=== PATIENT | female | born 1935 | race Caucasian/White ===

== ENCOUNTER 2016-09-13 13:12 | Emergency (ER) | payer OTHER ==
[2016-09-13 13:18] VITALS: TEMP 98.1; BMI 29.2
--- NOTE | 2016-09-13 13:22 | PDOC ---
History of Present Illness - General Chief Complaint: Weakness Stated Complaint: WEAKNESS Time Seen by Provider: 09/13/16 13:21 - History of Present Illness Initial Comments: 09/13/16 15:48 Complaint: Cough and shortness of breath History of present illness: Patient with a cold and a cough for several days. Breathing worse today with wheezing. Generalized weakness. No fever/chills or chest pain. Review of systems: As noted above, no fever/chills, headache, sore throat, sputum, chest pain, abdominal pain, nausea, vomiting, diarrhea, diaphoresis, urinary tract symptoms, vaginal bleeding or discharge, visual or focal neurologic symptoms, unsteadiness of gait Past medical history: Atrial fibrillation, fiu-yfjvoev-oegpkzzga diabetes, elevated cholesterol, GERD, low potassium, high blood pressure, CHF, hypothyroidism Medications: Synthroid, metformin, Coreg, Altace, potassium, Protonix, Eliquis ALLERGIES: None Social/family history reviewed and noncontributory Physical exam: Alert oriented tearful and cooperative mild respiratory distress with tachypnea and dyspnea Afebrile, showing 70 9/79, heart rate 60 and regular, respiratory rate 20 and mildly labored with audible wheezing, and O2 saturation of 95% on room air HEENT shows only mildly dry mucous membranes Neck supple without bruit mass or nodes Bilateral wheezing is present in the chest, moderate severe, predominantly end expiratory, bilaterally symmetric CV S1 and S2 distant, regular 60 per minute, no murmurs rubs or gallops, no JVD or edema, pulses full Abdomen benign Neurological intact Extremities no CCE Skin clear, no rash, adequate turgor but mucous membranes somewhat dry Impression: Bronchitis, rule out pneumonia, rule out exacerbation of CHF. Plan: Chest x-ray, EKG, labs, nebulizer treatments, antibiotics and expectorant. Further evaluation and treatment depending on lab results and response to therapy. Past History - Past Medical History Allergies/Adverse Reactions: Allergies Allergy/AdvReac Type Severity Reaction Status Date / Time No Known Allergies Allergy Verified 09/13/16 13:13 Home Medications: Ambulatory Orders Apixaban [Eliquis -] 5 mg PO BID tablet 10/25/14 Atorvastatin Ca [Lipitor] 20 mg PO HS tablet 10/25/14 Carvedilol [Coreg -] 25 mg PO BID tablet 10/25/14 Furosemide [Lasix -] 80 mg PO BID@0600,1400 tablet 06/08/15 Levothyroxine [Synthroid -] 25 mcg PO DAILY@0700 tablet 10/25/14 Potassium Chloride [K-Dur -] 20 meq PO DAILY tablet.er 10/25/14 Ramipril [Altace] 5 mg PO DAILY capsule 10/25/14 Esomeprazole Magnesium [Nexium 24Hr] 20 mg PO DAILY 09/13/16 Moxifloxacin HCl [Avelox] 400 mg PO DAILY #7 tablet 09/13/16 Anemia: No Asthma: No Cancer: No Cardiac Disorders: Yes CVA: Yes COPD: No CHF: Yes Diabetes: Yes GI Disorders: No Disorders: No HTN: Yes Hypercholesterolemia: Yes Liver Disease: No Seizures: Yes (HYPO) Thyroid Disease: Yes (HYPOTHYROIDISM) - Surgical History Abdominal Surgery: No Appendectomy: No Cardiac Surgery: No Cholecystectomy: Yes Lung Surgery: No Neurologic Surgery: No Orthopedic Surgery: No - Psycho/Social/Smoking Cessation Hx Anxiety: No Suicidal Ideation: No Smoking History: Never smoked Have you smoked in the past 12 months: No Hx Alcohol Use: No Drug/Substance Use Hx: No Substance Use Type: None Hx Substance Use Treatment: No *Physical Exam - Vital Signs Last Vital Signs Temp Pulse Resp BP Pulse Ox 98.1 F 58 L 17 179/79 95 09/13/16 13:12 09/13/16 13:12 09/13/16 13:12 09/13/16 13:12 09/13/16 13:12 ED Treatment Course - LABORATORY CBC & Chemistry Diagram: 09/13/16 13:33 09/13/16 13:25 Medical Decision Making - Medical Decision Making 09/13/16 15:40 EKG shows sinus bradycardia 59/m. Normal axes and intervals. No ST-T wave changes. Chest x-ray shows cardiomegaly, tortuous aorta, but lung masterson clear, no consolidation, infiltrates, congestion, or effusions Lab work shows the urine of 26, creatinine of 1.0, otherwise CBC, chemistries without significant abnormalities The patient responded well to nebulizer treatments. Wheezing resolved. Shortness of breath much improved. Treated with small amount of IV fluids for dehydration, not wanting to precipitate congestive heart failure. Patient much improved, fully ambulatory, in no distress respiratory or otherwise upon discharge to follow-up with her primary physician as directed. 09/13/16 16:30 *DC/Admit/Observation/Transfer Diagnosis at time of Disposition: Bronchitis - Discharge Dispostion Disposition: HOME Condition at time of disposition: Improved Admit: No - Prescriptions Prescriptions: Moxifloxacin HCl [Avelox] 400 mg PO DAILY #7 tablet - Referrals Referrals: Alexandre Stern MD [Primary Care Provider] - 2 Days - Patient Instructions Printed Discharge Instructions: DI for Acute Bronchitis
[2016-09-13] MEDS ORDERED: ALBUTEROL SO4 2.5/IPRATROPIUM 0.5 INH SOL 3 ML VIAL.NEB. NEB ONE ×4 (13:44→15:19)
[2016-09-13 14:01] LABS: PH,URINE 5.5 (4.5-8); URINE APPEARANCE Clear; URINE BILIRUBIN Negative (NEGATIVE); URINE BLOOD Negative (NEGATIVE); URINE GLUCOSE (UA) Negative (NEGATIVE); URINE KETONE Negative (NEGATIVE); URINE NITRITE Negative (NEGATIVE); URINE PROTEIN Negative (NEGATIVE); URINE UROBILINOGEN 1.0 E.U/dl (0.2-1.0)
[2016-09-13 14:06] LABS: URINE COLOR YELLOW; URINE LEUK ESTERASE 1+ (NEGATIVE); URINE RBC 0-3 /hpf (0-3)
[2016-09-13 14:07] LABS: URINE BACTERIA MODERATE /hpf (NEGATIVE)
[2016-09-13 14:08] LABS: BASOPHIL 0.2 % (0-2.0); EOSINOPHIL 0.5 % (0-4.5); MCH 29.5 pg (25.7-33.7); MCHC 33.7 g/dl (32.0-36.0); MEAN CELL VOLUME 87.6 fl (80-96); MEAN PLT VOLUME 8.6 fl (7.5-11.1); NEUTROPHILS 66.1 % (42.8-82.8); PLATELET COUNT 152 K/MM3 (134-434); RDW 12.9 % (11.6-15.6); WHITE BLOOD COUNT 7.4 K/mm3 (4.0-10.8)
[2016-09-13 14:08] LABS: ALBUMIN 3.7 g/dl (3.5-5.0); ALK PHOS 87 U/L (32-92); ANION GAP 11 (8-16); CALCIUM 8.6 mg/dl (8.4-10.2); CO2 26 mmol/L (22-28); GLUCOSE,RANDOM 161 mg/dl (74-106); SGOT/AST 31 U/L (10-42); SGPT/ALT 20 U/L (10-40); TOT PROT 6.8 g/dl (6.4-8.3)
[2016-09-13 15:20] LABS: CK MB 10.2 ng/ml (0.3-4.0); TROPONIN I (DFP) 0.03 ng/ml (0.03-0.50)
[2016-09-13] MEDS ORDERED: SODIUM CHLORIDE 250 ML IV STA (15:37)
[2016-09-13 16:12] VITALS: BP 182/88; PULSE 71
--- NOTE | 2016-09-14 16:54 | EKG ---
Test Reason : Blood Pressure : / mmHG Vent. Rate : 059 BPM Atrial Rate : 059 BPM P-R Int : 158 ms QRS Dur : 082 ms QT Int : 484 ms P-R-T Axes : 078 052 060 degrees QTc Int : 479 ms SINUS BRADYCARDIA LOW VOLTAGE QRS NO PREVIOUS ECGS AVAILABLE Confirmed by MD PINEDO MARJORY ([id number]) on 09/14/2016 4:54:12 PM Referred By: JANES OLIVEROS Confirmed By:RHIANNON PINEDO MD
== END 2016-09-13 16:20 | disposition home or self-care (01) ==
LOC: FER 13:12
PROC: 3E0337Z Introduction of Electrolytic and Water Balance Substance into Peripheral Vein, Percutaneous Approach (ICD-10-PCS; principal; 2016-09-13)
DX: J40 Bronchitis, not specified as acute or chronic (principal); I10 Essential (primary) hypertension; E03.9 Hypothyroidism, unspecified; E78.00 Pure hypercholesterolemia, unspecified; E11.9 Type 2 diabetes mellitus without complications; Z86.73 Personal history of transient ischemic attack (TIA), and cerebral infarction without residual deficits
CPT/HCPCS: 36415; 71010-TC; 80053; 81003; 81015; 82550; 82553; 84484; 85025; 93005; 99284-25

== ENCOUNTER 2019-03-12 18:24 | Inpatient (IN) | payer OTHER ==
--- NOTE | 2019-03-12 18:31 | PDOC ---
Rapid Medical Evaluation Time Seen by Provider: 03/12/19 18:26 Medical Evaluation: Allergies Allergy/AdvReac Type Severity Reaction Status Date / Time No Known Allergies Allergy Verified 09/13/16 13:13 03/12/19 18:28 CC: fever and weakness PE: Bibasilar crackles. RLE edema. Spo2-65%RA Orders: cardiac w/u Patient will proceed to ED for further evaluation. Discharge Disposition - Diagnosis Hypoxia - Referrals - Patient Instructions - Post Discharge Activity
--- NOTE | 2019-03-12 19:10 | PDOC ---
History of Present Illness - General Chief Complaint: Respiratory Stated Complaint: LOW OXYGEN LEVEL Time Seen by Provider: 03/12/19 18:26 - History of Present Illness Initial Comments: 03/12/19 19:20 83f with pmh of HTN, HLD, COPd, CHF, a-fib, dm2, hypothyroidism and old cerebellar stroke, presents to the ED for hypoxia and ams with hallucinations today. Reportedly she had low grade fever today and desaturated to 65% today. She is not on O2 at home. Hallucinated today, saw some people who werent;t there. Has been progressively sicker throughout the week. Legs were very swollen earlier this week now half as swollen. Denies chest pain abdominal pain or dysuria. PCP at the bedside with daughter. According to PCP her o2 sat at baseline is 88%. Past History - Past Medical History Allergies/Adverse Reactions: Allergies Allergy/AdvReac Type Severity Reaction Status Date / Time No Known Allergies Allergy Verified 03/12/19 18:29 Home Medications: Ambulatory Orders Alprazolam [Xanax] 0.25 mg PO BID 03/12/19 Amiodarone HCl 200 mg PO DAILY 03/12/19 Apixaban [Eliquis] 2.5 mg PO BID 03/12/19 Atorvastatin Ca [Lipitor] 10 mg PO HS 03/12/19 Furosemide [Lasix] 80 mg PO BID 03/12/19 Hydralazine HCl 50 mg PO BID 03/12/19 Insulin (Novolog 70/30) [Novolog Mix 70/30 Vial] 20 units SQ DAILY 03/12/19 Levothyroxine [Synthroid -] 25 mcg PO DAILY 03/12/19 Lisinopril [Zestril] 40 mg PO DAILY 03/12/19 Metoprolol Succinate 12.5 mg PO DAILY 03/12/19 Anemia: No Asthma: No Cancer: No Cardiac Disorders: Yes CVA: Yes COPD: No CHF: Yes Diabetes: Yes GI Disorders: No Disorders: No HTN: Yes Hypercholesterolemia: Yes Liver Disease: No Seizures: Yes (HYPO) Thyroid Disease: Yes (HYPOTHYROIDISM) - Surgical History Abdominal Surgery: No Appendectomy: No Cardiac Surgery: No Cholecystectomy: Yes Lung Surgery: No Neurologic Surgery: No Orthopedic Surgery: No - Immunization History Immunization Up to Date: Yes - Psycho Social/Smoking Cessation Hx Smoking History: Never smoked Have you smoked in the past 12 months: No Hx Alcohol Use: No Drug/Substance Use Hx: No Substance Use Type: None Hx Substance Use Treatment: No Review of Systems - Review of Systems Able to Perform ROS?: Yes Is the patient limited Amharic proficient: No Constitutional: Yes: Chills, Fever HEENTM: No: Symptoms Reported Respiratory: Yes: See HPI Cardiac (ROS): No: Symptoms Reported ABD/GI: No: Symptoms Reported : No: Symptoms Reported Musculoskeletal: No: Symptoms Reported Integumentary: No: Symptoms Reported Neurological: Yes: See HPI All Other Systems: Reviewed and Negative *Physical Exam - Vital Signs Last Vital Signs Temp Pulse Resp BP Pulse Ox 98.5 F 69 22 H 155/72 65 L 03/12/19 18:30 03/12/19 18:30 03/12/19 18:30 03/12/19 18:30 03/12/19 18:30 - Physical Exam General Appearance: Yes: Appropriately Dressed, Mild Distress, Thin HEENT: positive: EOMI, MACKENZIE, Normal ENT Inspection Respiratory/Chest: positive: Decreased Breath Sounds, Crackles (left lower lung) . negative: Chest Tender Cardiovascular: positive: Regular Rhythm, Regular Rate, S1, S2 Gastrointestinal/Abdominal: positive: Normal Bowel Sounds, Flat, Soft. negative : Tender Musculoskeletal: positive: Normal Inspection. negative: CVA Tenderness Extremity: positive: Pedal Edema Integumentary: positive: Dry, Warm, Swelling ED Treatment Course - LABORATORY CBC & Chemistry Diagram: 03/12/19 19:00 03/12/19 19:00 Medical Decision Making - Medical Decision Making 03/12/19 21:38 83f with pmh of HTN, HLD, COPd, CHF, a-fib, dm2, hypothyroidism and old cerebellar stroke, presents to the ED for hypoxia and ams with hallucinations today. Septic workup ordered. Patient has upper lobe right sided pneumonia on xray. Ct chest pending. Labs positive for elevated BNP and slightly elevated troponins. PCp at bedside will order admission lab. Patient admitted to telemetry. Admission is indicated as the patient has hypoxemia, altered mental status that is severe. 03/12/19 21:50 Ct chest 1. Mild mediastinal lymphadenopathy. 2. Cardiomegaly and small pericardial effusion. 3. Extensive consolidation involving the right upper lobe with lesser infiltrates involving the right lower and left upper lobes. 4. Moderate right pleural effusion and smaller left pleural effusion. Please see above discussion. Discharge - Discharge Information Problems reviewed: Yes Clinical Impression/Diagnosis: Hypoxia, Pneumonia - Admission Yes - Follow up/Referral - Patient Discharge Instructions - Post Discharge Activity
[2019-03-12 19:23] LABS: VENOUS PC02 40.7 mmHg (38-52)
[2019-03-12 19:24] LABS: VENOUS PO2 < 49 mmHg (28-48)
[2019-03-12 19:26] LABS: BASO % 0.6 % (0-2.0); EOS % 0.9 % (0-4.5); HEMOGLOBIN 11.7 GM/dL (10.7-15.3); LYMPH % 14.4 % (8-40); MCH 30.6 pg (25.7-33.7); MCHC 33.4 g/dl (32.0-36.0); MEAN CELL VOLUME 91.6 fl (80-96); MEAN PLT VOLUME 8.9 fl (7.5-11.1); MONO % 12.1 % (3.8-10.2); PLATELET COUNT 231 K/MM3 (134-434); RBC 3.82 M/mm3 (3.60-5.2); RDW 14.9 % (11.6-15.6); WHITE BLOOD COUNT 10.6 K/mm3 (4.0-10.0)
[2019-03-12 19:49] LABS: INR 1.88 (0.83-1.09); PROTHROMBIN TIME (PATIENT) 22.3 SEC (9.7-13.0)
[2019-03-12 19:52] LABS: ACTIVATED PTT 60.5 SECONDS (25.2-36.5)
[2019-03-12 20:05] LABS: ALBUMIN 3.1 g/dl (3.4-5.0); BILIRUBIN,TOTAL 1.2 mg/dL (0.2-1); BLOOD UREA NITROGEN 40.2 mg/dL (7-18); CALCIUM 8.5 mg/dL (8.5-10.1); CREATININE 1.5 mg/dL (0.55-1.3); POTASSIUM 3.6 mmol/L (3.5-5.1); TOT PROT 6.5 g/dl (6.4-8.2)
[2019-03-12] MEDS ORDERED: AZITHROMYCIN 250 MG TABLET PO ONE (20:09)
[2019-03-12] MEDS ORDERED: CEFTRIAXONE 1,000 MG in DEXTROSE 5%-WATER - 50 ML IVPB ONE (20:10)
[2019-03-12 20:15] LABS: BILIRUBIN,TOTAL 1.2 mg/dL (0.2-1); CALCIUM 8.2 mg/dL (8.5-10.1); CREATININE 1.5 mg/dL (0.55-1.3); MAGNESIUM 2.5 mg/dL (1.8-2.4); N-TERMINAL BNP 9139.1 pg/ml (5-450); POTASSIUM 3.6 mmol/L (3.5-5.1); TOT PROT 6.5 g/dl (6.4-8.2)
--- NOTE | 2019-03-12 20:25 | PDOC ---
Attending Attestation - Resident Resident Name: MadisonAshkan - ED Attending Attestation I have performed the following: I have examined & evaluated the patient, The case was reviewed & discussed with the resident, I agree w/resident's findings & plan, Exceptions are as noted - HPI HPI: 03/12/19 20:18 83F pmh HTN, HLD, COPD, CHF here with several days of cough, subjective fevers, AMS and new hypoxia. Per daughter at bedside patient has been having cough for the past week with progressively labile mental status. Daughter measured oxygen saturation after the patient started making bizarre statements and found it to be fluctuating between 65% and 80% triggering her to come to the ED. Patient was seen 2 days ago by her lisw who did not note any acute issues. Per daughter, patients chronic bilateral lower extremity edema is significantly improved over the past 2 weeks after a medication change. - Physicial Exam PE: 03/12/19 20:25 Agree with exam as documented by resident - Medical Decision Making 03/12/19 20:25 Clinical presentation is worrisome for respiratory infection Consider other infectious source like uti Consider electrolyte derangement Less likely intracranial abnormality, PE, CHF F/u labs, ua, ucx, cxr, consider CT Dispo per clinical course CXR consistent with infection/consolidation Start abx Pt moderate to high risk, will admit for care
[2019-03-12] MEDS ORDERED: CEFTRIAXONE 1 GM/50 ML BAG ONE (20:30)
[2019-03-12] MEDS ORDERED: AZITHROMYCIN 250 MG TABLET ONE (20:31)
--- NOTE | 2019-03-12 20:37 | HP ---
Admitting History and Physical - Admission Chief Complaint: Acute exacerbation of shortness of breath, easy fatigability, generalized muscle weakness, tachypnea, and visual hallucinations. History of Present Illness: This 83 yr old w/f with history of atrial fibrillation, HCVD with CHF, type 2 diabetes, hyperlipidemia, hypothyroidism, and old cerebellar stroke admitted via ER with acute right upper lobe pneumonia. 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, Vertigo (secondary to chronic cerebellar stroke) Cardiovascular: Yes: AFIB, CHF, HTN, Hyperlipdemia Pulmonary: Yes: Pneumonia Gastrointestinal: Yes: GERD Hepatobiliary: Yes: Cholelithiasis, Cholecystitis Psych: Yes: Anxiety, Psychosis Endocrine: Yes: Diabetes Mellitus, Hypothyroidism - Past Surgical History Past Surgical History: Yes: Cholecystectomy, Hysterectomy, Oopherectomy - Smoking History Smoking history: Never smoked Have you smoked in the past 12 months: No - Alcohol/Substance Use Hx Alcohol Use: No - Social History Usual Living Arrangement: Yes: With Child Do you think of yourself as: Straight/Heterosexual ADL: Family Assistance Home Medications - Allergies Allergies/Adverse Reactions: Allergies Allergy/AdvReac Type Severity Reaction Status Date / Time No Known Allergies Allergy Verified 03/12/19 18:29 - Home Medications Home Medications: Ambulatory Orders Alprazolam [Xanax] 0.25 mg PO BID 03/12/19 Amiodarone HCl 200 mg PO DAILY 03/12/19 Apixaban [Eliquis] 2.5 mg PO BID 03/12/19 Atorvastatin Ca [Lipitor] 10 mg PO HS 03/12/19 Furosemide [Lasix] 80 mg PO BID 03/12/19 Hydralazine HCl 50 mg PO BID 03/12/19 Insulin (Novolog 70/30) [Novolog Mix 70/30 Vial] 20 units SQ DAILY 03/12/19 Levothyroxine [Synthroid -] 25 mcg PO DAILY 03/12/19 Lisinopril [Zestril] 40 mg PO DAILY 03/12/19 Metoprolol Succinate 12.5 mg PO DAILY 03/12/19 Family Medical History Family Hx Cardiac Disorders: Mother Family Hx Nuerologic Problems: Mother Review of Systems - Review of Systems Constitutional: reports: Fever, Malaise, Weakness Eyes: reports: No Symptoms HENT: reports: No Symptoms Neck: reports: No Symptoms Cardiovascular: reports: No Symptoms Respiratory: reports: Cough, Hemoptysis, SOB Gastrointestinal: reports: Constipation Genitourinary: reports: No Symptoms Breasts: reports: No Symptoms Reported Musculoskeletal: reports: Muscle Weakness Integumentary: reports: No Symptoms Neurological: reports: Confusion, Dizziness, Unsteady Gait, Weakness Endocrine: reports: No Symptoms Hematology/Lymphatic: reports: No Symptoms Psychiatric: reports: Anxiety, Hallucinations Physical Examination Vital Signs: Vital Signs Temperature 99.5 F 03/12/19 18:45 Pulse Rate 67 03/12/19 20:19 Respiratory Rate 24 H 03/12/19 20:19 Blood Pressure 174/76 H 03/12/19 20:19 O2 Sat by Pulse Oximetry (%) 92 L 03/12/19 20:19 Constitutional: Yes: Well Nourished, Anxious, Moderate Distress Eyes: Yes: Conjunctiva Clear, EOM Intact HENT: Yes: Atraumatic, Normocephalic Neck: Yes: Supple, Trachea Midline Cardiovascular: Yes: Regular Rate and Rhythm Respiratory: Yes: Regular, Accessory Muscle Use, Cough, Diminished, On Venti- Mask, SOB, Tachypnea Gastrointestinal: Yes: Normal Bowel Sounds, Soft ...Rectal Exam: Yes: Deferred Renal/: Yes: WNL Breast(s): Yes: WNL Musculoskeletal: Yes: Muscle Weakness Extremities: Yes: Cool Edema: Yes Edema: LLE: 3+, RLE: 3+ Peripheral Pulses: Left Radial: 3+, Right Radial: 3+, Left Doralis Pedis: 2+, Right Dorsalis Pedis: 2+, Left Femoral: 3+, Right Femoral: 3+ Integumentary: Yes: WNL Neurological: Yes: Confusion, Unsteady Gait, Weakness ...Motor Strength: LUE (generalized muscle weakness), LLE (generalized muscle weakness), RUE (generalized muscle weakness), RLE (generalized muscle weakness) Psychiatric: Yes: Alert, Oriented Labs: CBC, BMP 03/12/19 19:00 03/12/19 19:00 Imaging - Results EKG: Report Reviewed Problem List - Problems (1) Acute pneumonia Assessment/Plan: IV antibiotics, consultation to ID. Code(s): J18.9 - PNEUMONIA, UNSPECIFIED ORGANISM (2) Hypoxia Assessment/Plan: Oxygen via venti mask. Code(s): R09.02 - HYPOXEMIA Assessment/Plan Reason for admission and hospital stay: acute right upper lobe pneumonia, acute hypoxia, IV fluids, IV antibiotics, Consultation to ID, physical therapy, discussed clinical condition of the patient with her daughter Gracie.
[2019-03-12 20:47] LABS: PH,URINE 5.5 (5.0-8.0); URINE APPEARANCE CLEAR; URINE BILIRUBIN NEGATIVE (NEGATIVE); URINE COLOR YELLOW; URINE GLUCOSE (UA) NEGATIVE (NEGATIVE); URINE KETONE NEGATIVE (NEGATIVE); URINE LEUK ESTERASE NEGATIVE (NEGATIVE); URINE NITRITE NEGATIVE (NEGATIVE); URINE PROTEIN NEGATIVE (NEGATIVE)
[2019-03-12] MEDS ORDERED: ALPRAZolam 0.25 MG TABLET PO STA (20:56)
[2019-03-12] MEDS ORDERED: metoPROLOL SUCCINATE 25 MG TAB.SR.24H (FP) PO SCH (21:00)
[2019-03-12] MEDS: hydrALAZINE HCL 50 MG TABLET (FP) PO SCH (22:55)
[2019-03-12] MEDS: APIXABAN 2.5 MG TABLET PO SCH (22:55)
[2019-03-13 01:55] VITALS: BMI 32.5
[2019-03-13] MEDS ORDERED: LEVOTHYROXINE NA 25 MCG TABLET (FP) PO SCH (07:00)
[2019-03-13] MEDS: FUROSEMIDE 40 MG TABLET (FP) PO SCH ×2 (07:37→13:17)
[2019-03-13] MEDS: LEVOTHYROXINE NA 25 MCG TABLET (FP) PO SCH (07:37)
[2019-03-13] MEDS ORDERED: INSULIN (NOVOLOG MIX 70/30) 100 UNITS/ML MDV SQ SCH (08:00)
[2019-03-13] MEDS: AMIODARONE HCL 200 MG TABLET (FP) PO SCH (09:04)
[2019-03-13] MEDS: LISINOPRIL 20 MG TABLET (FP) PO SCH (09:04)
[2019-03-13] MEDS: APIXABAN 2.5 MG TABLET PO SCH ×2 (09:05→21:44)
[2019-03-13] MEDS: hydrALAZINE HCL 50 MG TABLET (FP) PO SCH ×2 (09:05→21:44)
[2019-03-13] MEDS: metoPROLOL SUCCINATE 25 MG TAB.SR.24H (FP) PO SCH (09:06)
[2019-03-13] MEDS ORDERED: FLU VACCINE QUAD 60 MCG/0.5 ML (MDV 19-20) IM ONE (10:00)
--- NOTE | 2019-03-13 10:40 | PN ---
Progress Note (short form) - Note Progress Note: ID CONSULT DICTATED MULTILOBAR PNEUMONIA R/O SEPSIS SECONDARY TO PNEUMONIA TOXIC METABOLIC ENCEPHALOPATHY ELEVATED LFTS AZOTEMIA AWAIT C/S EMPIRIC ZITHROMAX/ ZOSYN
[2019-03-13] MEDS ORDERED: PIPERACILLIN/TAZOBACTAM 3.375 GM VIAL IVPB ONE ×2 (11:08→17:13)
[2019-03-13] MEDS ORDERED: DEXTROSE 5%-WATER - 50 ML IVPB ONE ×2 (11:09→17:13)
[2019-03-13] MEDS: PIPERACILLIN/TAZOB 3.375 GM 3.375 GM in DEXTROSE 5%-WATER - 50 ML IVPB SCH ×2 (11:26→17:24)
--- NOTE | 2019-03-13 12:38 | PN ---
Progress Note, Physician Chief Complaint: Acute shortness of breath, easy fatigability, generalized muscle weakness, and unsteadiness on feet. Wishes to be assisted to restroom when needed. History of Present Illness: This 83 yr old w/f with history of atrial fibrillation, HCVD with CHF, hyperlipidemia, GERD, chronic cerebellar stroke, type 2 diabetes, cardiomegaly, and hypothyroidism admitted via ER with acute multi-lobar pneumonia, severe hypoxemia, sepsis, acute debillity, and hyponatremia. - Current Medication List Current Medications: Active Medications Amiodarone HCl (Cordarone -) 200 mg PO DAILY [facility] Last Admin: 03/13/19 09:04 Dose: 200 mg Apixaban (Eliquis -) 2.5 mg PO BID [facility] Last Admin: 03/13/19 09:05 Dose: 2.5 mg Atorvastatin Calcium (Lipitor -) 10 mg PO HS [facility] Furosemide (Lasix -) 80 mg PO BIDLASIX [facility] Last Admin: 03/13/19 07:37 Dose: 80 mg Hydralazine HCl (Apresoline -) 50 mg PO Q12H [facility] Last Admin: 03/13/19 09:05 Dose: 50 mg Azithromycin (Zithromax 500mg Ivpb (Pre-Docked)) 500 mg in 250 mls @ 250 mls/ hr IVPB DAILY [facility] Piperacillin Sod/Tazobactam (Sod 3.375 gm/ Dextrose) 50 mls @ 100 mls/hr IVPB Q8H-IV [facility]; Protocol Last Admin: 03/13/19 11:26 Dose: 100 mls/hr Insulin Aspart (Novolog Mix 70/30 Vial) 20 units SQ Q24H [facility] Last Admin: 03/13/19 11:25 Dose: 20 units Levothyroxine Sodium (Synthroid -) 25 mcg PO AM [facility] Last Admin: 03/13/19 07:37 Dose: 25 mcg Lisinopril (Prinivil) 40 mg PO DAILY [facility] Last Admin: 03/13/19 09:04 Dose: 40 mg Metoprolol Succinate (Toprol Xl -) 12.5 mg PO Q24H [facility] Last Admin: 03/13/19 09:06 Dose: 12.5 mg - Objective Vital Signs: Vital Signs Temperature 98.0 F 03/13/19 08:31 Pulse Rate 73 03/13/19 08:31 Respiratory Rate 18 03/13/19 08:31 Blood Pressure 151/82 03/13/19 08:31 O2 Sat by Pulse Oximetry (%) 93 L 03/12/19 23:00 Constitutional: Yes: Well Nourished, Moderate Distress Eyes: Yes: Conjunctiva Clear, EOM Intact, Other (left subconjunctival hemorrhage ) HENT: Yes: Atraumatic, Normocephalic, Epistaxis (traumatic) Neck: Yes: Supple, Trachea Midline Cardiovascular: Yes: Regular Rate and Rhythm Respiratory: Yes: Regular, Accessory Muscle Use, Diminished (right upper lobe), On Venti-Mask (50% oxygen), Rales, Rhonchi, SOB Gastrointestinal: Yes: Normal Bowel Sounds, Soft ...Rectal Exam: Yes: Deferred Genitourinary: Yes: WNL Breast(s): Yes: WNL Musculoskeletal: Yes: Muscle Weakness Extremities: Yes: Cool Edema: Yes Edema: LLE: 2+, RLE: 2+ Peripheral Pulses WNL: Yes Peripheral Pulses: Left Radial: 3+, Right Radial: 3+, Left Doralis Pedis: 2+, Right Dorsalis Pedis: 2+, Left Femoral: 3+, Right Femoral: 3+ Integumentary: Yes: WNL Neurological: Yes: Alert, Oriented, Unsteady Gait, Weakness ...Motor Strength: LUE (muscle weakness), LLE (muscle weakness), RUE (muscle weakness), RLE (muscle weakness) Psychiatric: Yes: Alert, Oriented Labs: CBC, BMP 03/12/19 19:00 03/12/19 19:00 INR, PTT INR 1.88 (0.83-1.09) H 03/12/19 19:00 - ....Imaging Chest X-ray: Report Reviewed Cat Scan: Report Reviewed Other: Report Reviewed (Lab data reviewed, ID consult read and appreciated.) Problem List - Problems (1) Pneumonia Assessment/Plan: IV Zosyn and Zithromax as per ID. Code(s): J18.9 - PNEUMONIA, UNSPECIFIED ORGANISM (2) Hypoxia Assessment/Plan: 50% oxygen via venti-mask. Code(s): R09.02 - HYPOXEMIA (3) Sepsis Assessment/Plan: IV Zosyn and Zithromax. Code(s): A41.9 - SEPSIS, UNSPECIFIED ORGANISM (4) Hyponatremia Assessment/Plan: mild hyponatremia - close observation. Code(s): E87.1 - HYPO-OSMOLALITY AND HYPONATREMIA Assessment/Plan Plan: Acute lobar pneumonia of the right upper lobe, right lower lobe, and left upper lobe; acute sepsis, acute hypoxia, acute hyponatremia, acute generalized muscle weakness, IV fluids, IV Zosyn and Zithromax, physical therapy, discussed clinical condition of the patient with her daughter Gracie.
[2019-03-13] MEDS: AZITHROMYCIN IVPB 500 MG/250 ML BAG IVPB SCH (13:16)
--- NOTE | 2019-03-13 13:29 | EKG ---
Test Reason : Blood Pressure : / mmHG Vent. Rate : 066 BPM Atrial Rate : 066 BPM P-R Int : 182 ms QRS Dur : 090 ms QT Int : 458 ms P-R-T Axes : 045 040 027 degrees QTc Int : 480 ms POOR DATA QUALITY, INTERPRETATION MAY BE ADVERSELY AFFECTED NORMAL SINUS RHYTHM Confirmed by PAUL CHAO MD ([id number]) on 03/13/2019 1:29:34 PM Referred By: Confirmed By:PAUL CHAO MD
--- NOTE | 2019-03-13 16:41 | CONS ---
DATE OF CONSULTATION: 03/13/2019 INFECTIOUS DISEASE CONSULTATION HISTORY OF PRESENT ILLNESS: The patient is an 83-year-old female who is evaluated for pneumonia. She is primarily Yi speaking. According to the notes, she has had a 1-week history of worsening cough and subjective fever as well as altered mentation and increased lower extremity swelling. She was noted to be hypoxemic. She presented to the hospital where chest x-ray showed a pulmonary congestion with right upper lobe consolidation. CAT scan subsequently showed multilobar infiltrates including right upper lobe, right lower lobe, and left upper lobe. She also had mild mediastinal lymphadenopathy, cardiomegaly and a bilateral pleural effusion, right greater than left. At the present time she is awake and alert. She is slightly short of breath, at rest on nasal cannula. She denies any chest pain. She has occasional cough, denies purulent sputum production or hemoptysis. No known ill contacts. The patient resides at home. She is a nonsmoker, nondrinker. No recent hospitalizations. PAST MEDICAL HISTORY: Positive for hypertension, hyperlipidemia, COPD, congestive heart failure, atrial fibrillation, diabetes mellitus, hypothyroidism, stroke. ALLERGIES: No known allergies. MEDICATION: Include Xanax, amiodarone, Eliquis, Lipitor, Zithromax, ceftriaxone, Lasix, hydralazine, metoprolol. SOCIAL HISTORY: As per HPI. Lives at home. No recent hospitalizations. Nonsmoker. Nondrinker. SYSTEMS REVIEW: Neurologic: Positive for confusion. No loss of consciousness, seizure activity, focal weakness. Cardiac: Negative for chest pain or palpitations. Respiratory: As per HPI. Gastrointestinal: Negative vomiting or diarrhea. Genitourinary: Negative for urinary tract infection. LABORATORY DATA: White count 7.6, hematocrit 35.0, platelet count 231, creatinine 1.5, total bilirubin 1.2, alkaline phosphatase 103, AST 126, ALT 318. Urinalysis negative. Cultures are pending. PHYSICAL EXAMINATION: General: On exam, she is awake and alert, she is slightly short of breath at rest on nasal canula. Vital signs: Temperature 98.0, blood pressure 151/82, pulse 73 regular, respirations 18 per minute. HEENT: Sclerae anicteric. Cardiovascular: Heart sounds S1, S2. Lungs: Diminished breath sounds bilaterally. No rhonchi, rales or wheezing. Abdomen: Obese. Soft, nontender. Extremities: 1+ edema. IMPRESSION: 1. Multilobar pneumonia. 2. Rule out sepsis secondary to pneumonia. 3. Toxic metabolic encephalopathy. 4. Elevated liver enzymes. 5. Azotemia. Await sepsis workup. Empiric antibiotic coverage with Zithromax and Zosyn pending sepsis workup. Further recommendations pending culture results. Will follow. Thank you for the kind referral. PAUL PERRY M.D. [id number]
[2019-03-13] MEDS ORDERED: ATORVASTATIN CA 10 MG TABLET (FP) PO SCH (22:00)
[2019-03-14] MEDS ORDERED: DEXTROSE 5%-WATER - 50 ML IVPB ONE ×2 (01:02→09:26)
[2019-03-14] MEDS ORDERED: PIPERACILLIN/TAZOBACTAM 3.375 GM VIAL IVPB ONE ×2 (01:02→09:25)
[2019-03-14] MEDS: PIPERACILLIN/TAZOB 3.375 GM 3.375 GM in DEXTROSE 5%-WATER - 50 ML IVPB SCH ×5 (01:10→20:17)
[2019-03-14] MEDS ORDERED: HALOPERIDOL LACTATE 5 MG/ML IM ONE (01:50)
[2019-03-14] MEDS ORDERED: HALOPERIDOL LACTATE 5 MG/ML ONE (01:51)
[2019-03-14] MEDS: LEVOTHYROXINE NA 25 MCG TABLET (FP) PO SCH (06:30)
[2019-03-14] MEDS: FUROSEMIDE 40 MG TABLET (FP) PO SCH ×2 (06:30→16:23)
[2019-03-14 06:35] LABS: BASO % 0.3 % (0-2.0); HEMOGLOBIN 11.6 GM/dL (10.7-15.3); LYMPH % 4.5 % (8-40); MCH 30.7 pg (25.7-33.7); MCHC 33.3 g/dl (32.0-36.0); MEAN CELL VOLUME 92.2 fl (80-96); MEAN PLT VOLUME 8.6 fl (7.5-11.1); MONO % 4.8 % (3.8-10.2); NEUT % 90.4 % (42.8-82.8); PLATELET COUNT 275 K/MM3 (134-434); RBC 3.79 M/mm3 (3.60-5.2); RDW 14.6 % (11.6-15.6); WHITE BLOOD COUNT 10.3 K/mm3 (4.0-10.0)
[2019-03-14 07:06] LABS: ALBUMIN 3.2 g/dl (3.4-5.0); BILIRUBIN,TOTAL 1.7 mg/dL (0.2-1); BLOOD UREA NITROGEN 26.9 mg/dL (7-18); CALCIUM 8.3 mg/dL (8.5-10.1); CREATININE 1.3 mg/dL (0.55-1.3); POTASSIUM 3.7 mmol/L (3.5-5.1); TOT PROT 6.6 g/dl (6.4-8.2)
[2019-03-14] MEDS ORDERED: ALPRAZolam 0.25 MG TABLET PO SCH (08:00)
[2019-03-14] MEDS ORDERED: INSULIN (NOVOLOG MIX 70/30) 100 UNITS/ML MDV SQ SCH (08:00)
--- NOTE | 2019-03-14 11:45 | PN ---
Progress Note, Physician Chief Complaint: Acute combative state, and acute delirium, since last night. Awake all night. Fell asleep at 7am. History of Present Illness: This 83 yr old w/f with history of atrial fibrillation, hyperlipidemia, HCVD with CHF, type 2 diabetes, GERD, and generalized anxiety disorder admitted via ER with acute multi-lobar pneumonia (right upper lobe, right lower lobe, and left upper lobe), severe hypoxemia, sepsis, and toxic metabolic encephalopathy. - Current Medication List Current Medications: Active Medications Alprazolam (Xanax -) 0.25 mg PO Q12H [facility] Amiodarone HCl (Cordarone -) 200 mg PO DAILY [facility] Last Admin: 03/13/19 09:04 Dose: 200 mg Apixaban (Eliquis -) 2.5 mg PO BID [facility] Last Admin: 03/13/19 21:44 Dose: 2.5 mg Atorvastatin Calcium (Lipitor -) 10 mg PO HS [facility] Last Admin: 03/13/19 21:44 Dose: 10 mg Furosemide (Lasix -) 80 mg PO BIDLASIX [facility] Last Admin: 03/14/19 06:30 Dose: 80 mg Hydralazine HCl (Apresoline -) 50 mg PO Q12H [facility] Last Admin: 03/13/19 21:44 Dose: 50 mg Azithromycin (Zithromax 500mg Ivpb (Pre-Docked)) 500 mg in 250 mls @ 250 mls/ hr IVPB DAILY [facility] Last Admin: 03/13/19 13:16 Dose: 250 mls/hr Piperacillin Sod/Tazobactam (Sod 3.375 gm/ Dextrose) 50 mls @ 100 mls/hr IVPB Q8H-IV [facility]; Protocol Last Admin: 03/14/19 02:55 Dose: 100 mls/hr Insulin Aspart (Novolog Mix 70/30 Vial) 22 units SQ Q24H [facility] Levothyroxine Sodium (Synthroid -) 25 mcg PO AM [facility] Last Admin: 03/14/19 06:30 Dose: 25 mcg Lisinopril (Prinivil) 40 mg PO DAILY [facility] Last Admin: 03/13/19 09:04 Dose: 40 mg Metoprolol Succinate (Toprol Xl -) 12.5 mg PO Q24H [facility] Last Admin: 03/13/19 09:06 Dose: 12.5 mg - Objective Vital Signs: Vital Signs Temperature 98.8 F 03/14/19 08:32 Pulse Rate 67 03/14/19 08:32 Respiratory Rate 16 03/14/19 08:32 Blood Pressure 124/58 L 03/14/19 08:32 O2 Sat by Pulse Oximetry (%) 92 L 03/13/19 21:00 Constitutional: Yes: Well Nourished, Moderate Distress, Other (lethargic) Eyes: Yes: Conjunctiva Clear (except for small left subconjunctival hemorrhage) , EOM Intact HENT: Yes: Atraumatic, Normocephalic Neck: Yes: Supple, Trachea Midline Cardiovascular: Yes: Regular Rate and Rhythm Respiratory: Yes: Regular, CTA Bilaterally, Diminished, On Nasal O2, SOB, SOB on Exertion Gastrointestinal: Yes: Normal Bowel Sounds, Soft ...Rectal Exam: Yes: Deferred Genitourinary: Yes: WNL Breast(s): Yes: WNL Musculoskeletal: Yes: Muscle Weakness Extremities: Yes: Cool Edema: Yes Edema: LLE: 1+, RLE: 1+ Peripheral Pulses WNL: Yes Peripheral Pulses: Left Radial: 3+, Right Radial: 3+, Left Doralis Pedis: 2+, Right Dorsalis Pedis: 2+, Left Femoral: 3+, Right Femoral: 3+ Integumentary: Yes: WNL Neurological: Yes: Confusion, Lethargy, Unsteady Gait, Other (was awake all night until 7am) ...Motor Strength: LUE (muscle weakness), LLE (muscle weakness), RUE (muscle weakness), RLE (muscle weakness) Psychiatric: Yes: Agitated (since last night) Labs: CBC, BMP 03/14/19 05:35 03/14/19 05:35 INR, PTT INR 1.88 (0.83-1.09) H 03/12/19 19:00 - ....Imaging Other: Report Reviewed (Lab data reviewed.) Problem List - Problems (1) Pneumonia Assessment/Plan: IV Zosyn and Azithromycin. Code(s): J18.9 - PNEUMONIA, UNSPECIFIED ORGANISM (2) Hypoxia Assessment/Plan: Oxygen via nasal cannula. Code(s): R09.02 - HYPOXEMIA (3) Sepsis Assessment/Plan: IV Zosyn and Azithromycin. Code(s): A41.9 - SEPSIS, UNSPECIFIED ORGANISM Assessment/Plan Plan: acute multi-lobar pneumonia of the right upper lobe, right lower lobe, and left upper lobe; acute severe hypoxemia, acute sepsis, acute delirium, acute combative state, acute hyperbilirubinemia, acute transaminasemia; IV Zosyn and Azithromycin, one dose of Haloperidol, oxygen via nasal cannula, and physical therapy. Discussed clinical condition of the patient with her daughter Gracie.
[2019-03-14] MEDS ORDERED: INSULIN (NOVOLOG) ASPART 100 UNITS/ML 10ML VIAL SQ ONE (11:55)
[2019-03-14] MEDS: AZITHROMYCIN IVPB 500 MG/250 ML BAG IVPB SCH (13:40)
[2019-03-14] MEDS: LISINOPRIL 20 MG TABLET (FP) PO SCH (16:23)
[2019-03-14] MEDS: APIXABAN 2.5 MG TABLET PO SCH (16:23)
[2019-03-14] MEDS: AMIODARONE HCL 200 MG TABLET (FP) PO SCH (16:24)
[2019-03-14] MEDS: hydrALAZINE HCL 50 MG TABLET (FP) PO SCH (16:24)
[2019-03-14] MEDS: metoPROLOL SUCCINATE 25 MG TAB.SR.24H (FP) PO SCH (16:24)
[2019-03-14] MEDS: LORazepam 2 MG/ML SDV VIAL IVPUSH PRN ×2 (17:14→23:52)
[2019-03-14] MEDS: hydrALAZINE HCL 20 MG/ML VIAL IVPUSH PRN (21:39)
[2019-03-14] MEDS: ENOXAPARIN NA (PORCINE) 40 MG/0.4 ML DISP.SYRIN SQ SCH (21:40)
[2019-03-15] MEDS ORDERED: PIPERACILLIN/TAZOBACTAM 3.375 GM VIAL IVPB ONE ×3 (02:46→16:30)
[2019-03-15] MEDS ORDERED: DEXTROSE 5%-WATER - 50 ML IVPB ONE ×3 (02:46→16:30)
[2019-03-15] MEDS: PIPERACILLIN/TAZOB 3.375 GM 3.375 GM in DEXTROSE 5%-WATER - 50 ML IVPB SCH ×3 (02:59→17:47)
[2019-03-15] MEDS ORDERED: FUROSEMIDE 40 MG/4 ML INJECTABLE VIAL IVPUSH SCH (06:00)
[2019-03-15 06:33] LABS: BASO % 0.4 % (0-2.0); EOS % 0.6 % (0-4.5); HEMATOCRIT 30.1 % (32.4-45.2); HEMOGLOBIN 10.1 GM/dL (10.7-15.3); LYMPH % 14.3 % (8-40); MCH 30.6 pg (25.7-33.7); MCHC 33.4 g/dl (32.0-36.0); MEAN CELL VOLUME 91.6 fl (80-96); MEAN PLT VOLUME 8.1 fl (7.5-11.1); NEUT % 73.7 % (42.8-82.8); PLATELET COUNT 240 K/MM3 (134-434); RBC 3.29 M/mm3 (3.60-5.2); RDW 14.8 % (11.6-15.6); WHITE BLOOD COUNT 7.4 K/mm3 (4.0-10.0)
[2019-03-15 07:00] LABS: ALBUMIN 2.6 g/dl (3.4-5.0); BILIRUBIN,TOTAL 1.2 mg/dL (0.2-1); BLOOD UREA NITROGEN 19.8 mg/dL (7-18); CALCIUM 8.2 mg/dL (8.5-10.1); CREATININE 1.2 mg/dL (0.55-1.3); TOT PROT 5.5 g/dl (6.4-8.2)
[2019-03-15] MEDS: AZITHROMYCIN IVPB 500 MG/250 ML BAG IVPB SCH (10:15)
--- NOTE | 2019-03-15 10:32 | PN ---
Progress Note, Physician History of Present Illness: AWAKE, SEATED IN BED HEALTH AIDE AT BEDSIDE REPORTS PT AGITATED AT TIMES BREATHING NON LABORED ON NASAL CANNULA AFEBRILE WBC IMPROVED BC (-) LEGIONELLA AG (-) - Current Medication List Current Medications: Active Medications Enoxaparin Sodium (Lovenox -) 40 mg SQ DAILY [facility] Last Admin: 03/14/19 21:40 Dose: 40 mg Furosemide (Lasix Injection -) 20 mg IVPUSH BID@0600,1400 [facility] Last Admin: 03/15/19 06:07 Dose: 20 mg Hydralazine HCl (Apresoline Injection -) 10 mg IVPUSH Q6H PRN PRN Reason: HYPERTENSION (> 150/90) Last Admin: 03/14/19 21:39 Dose: 10 mg Azithromycin (Zithromax 500mg Ivpb (Pre-Docked)) 500 mg in 250 mls @ 250 mls/ hr IVPB DAILY [facility] Last Admin: 03/14/19 13:40 Dose: 250 mls/hr Piperacillin Sod/Tazobactam (Sod 3.375 gm/ Dextrose) 50 mls @ 100 mls/hr IVPB Q8H-IV [facility]; Protocol Last Admin: 03/15/19 02:59 Dose: 100 mls/hr Insulin Aspart (Novolog Mix 70/30 Vial) 22 units SQ Q24H [facility] Last Admin: 03/14/19 16:24 Dose: Not Given Lorazepam (Ativan Injection -) 1 mg IVPUSH Q6H PRN PRN Reason: ANXIETY Last Admin: 03/14/19 23:52 Dose: 1 mg - Objective Vital Signs: Vital Signs Temperature 97.3 F L 03/15/19 05:00 Pulse Rate 55 L 03/15/19 05:00 Respiratory Rate 16 03/15/19 05:00 Blood Pressure 134/46 L 03/15/19 05:00 O2 Sat by Pulse Oximetry (%) 94 L 03/14/19 21:00 Constitutional: Yes: No Distress Eyes: Yes: Conjunctiva Clear Cardiovascular: Yes: Regular Rate and Rhythm, S1, S2 Respiratory: Yes: Rhonchi Gastrointestinal: Yes: Normal Bowel Sounds, Soft. No: Tenderness Edema: Yes Edema: LLE: 1+, RLE: 1+ Labs: CBC, BMP 03/15/19 05:48 03/15/19 05:48 INR, PTT INR 1.88 (0.83-1.09) H 03/12/19 19:00 Assessment/Plan MULTILOBAR PNEUMONIA TOXIC METABOLIC ENCEPHALOPATHY LEUKOCYTOSIS IMPROVED AZOTEMIA IMPROVED ELEVATED LFTS CONTINUE ZOSYN D/C ZITHROMAX
[2019-03-15] MEDS: ENOXAPARIN NA (PORCINE) 40 MG/0.4 ML DISP.SYRIN SQ SCH (11:15)
[2019-03-15 14:00] LABS: MAGNESIUM 2.6 mg/dL (1.8-2.4)
[2019-03-15] MEDS: KCL 10 MEQ IVPB 10 MEQ/100 ML INFUS.BAG IVPB SCH ×3 (14:15→16:37)
--- NOTE | 2019-03-15 14:41 | PN ---
Progress Note, Physician Chief Complaint: Dyspnea improved, less combative behavior. History of Present Illness: This 83 yr old w/f with history of HCVD with CHF, cardiomegaly, hypothyroidism, dementia with combative behavior,type 2 diabetes, chronic cerebellar stroke admitted via ER with acute multi-lobar pneumonia, acute severe hypoxemia, and toxic metabolic encephalopathy. - Current Medication List Current Medications: Active Medications Enoxaparin Sodium (Lovenox -) 40 mg SQ DAILY [facility] Last Admin: 03/15/19 11:15 Dose: 40 mg Furosemide (Lasix Injection -) 20 mg IVPUSH Q48H [facility] Hydralazine HCl (Apresoline Injection -) 10 mg IVPUSH Q6H PRN PRN Reason: HYPERTENSION (> 150/90) Last Admin: 03/14/19 21:39 Dose: 10 mg Azithromycin (Zithromax 500mg Ivpb (Pre-Docked)) 500 mg in 250 mls @ 250 mls/ hr IVPB DAILY [facility] Last Admin: 03/15/19 10:15 Dose: 250 mls/hr Piperacillin Sod/Tazobactam (Sod 3.375 gm/ Dextrose) 50 mls @ 100 mls/hr IVPB Q8H-IV [facility]; Protocol Last Admin: 03/15/19 11:14 Dose: 100 mls/hr Potassium Chloride (Potassium Chloride 10 Meq Premix Ivpb -) 10 meq in 100 mls @ 100 mls/hr IVPB Q60M [facility] Stop: 03/15/19 16:14 Last Admin: 03/15/19 14:15 Dose: 100 mls/hr Insulin Aspart (Novolog Mix 70/30 Vial) 20 units SQ Q24H [facility] Lorazepam (Ativan Injection -) 1 mg IVPUSH Q6H PRN PRN Reason: ANXIETY Last Admin: 03/14/19 23:52 Dose: 1 mg - Objective Vital Signs: Vital Signs Temperature 97.3 F L 03/15/19 05:00 Pulse Rate 55 L 03/15/19 05:00 Respiratory Rate 16 03/15/19 05:00 Blood Pressure 134/46 L 03/15/19 05:00 O2 Sat by Pulse Oximetry (%) 94 L 03/14/19 21:00 Constitutional: Yes: Well Nourished, Calm, Mild Distress Eyes: Yes: Conjunctiva Clear, EOM Intact, Other (small left subconjunctival hemorrhage) HENT: Yes: Atraumatic, Normocephalic Neck: Yes: Supple, Trachea Midline Cardiovascular: Yes: Regular Rate and Rhythm Respiratory: Yes: Regular, CTA Bilaterally, Diminished, On Nasal O2, Rhonchi Gastrointestinal: Yes: Normal Bowel Sounds, Soft ...Rectal Exam: Yes: Deferred Genitourinary: Yes: WNL Breast(s): Yes: WNL Musculoskeletal: Yes: WNL Extremities: Yes: Cool Edema: Yes Edema: LLE: 1+, RLE: 1+ Peripheral Pulses WNL: Yes Peripheral Pulses: Left Radial: 3+, Right Radial: 3+, Left Doralis Pedis: 2+, Right Dorsalis Pedis: 2+, Left Femoral: 3+, Right Femoral: 3+ Integumentary: Yes: WNL Neurological: Yes: Alert, Oriented, Confusion, Unsteady Gait ...Motor Strength: WNL Psychiatric: Yes: Alert, Oriented Labs: CBC, BMP 03/15/19 05:48 03/15/19 05:48 INR, PTT INR 1.88 (0.83-1.09) H 03/12/19 19:00 - ....Imaging Other: Report Reviewed (Lab data reviewed. ID note read and appreciated.) Problem List - Problems (1) Pneumonia Assessment/Plan: IV Zosyn and Azithromycin. Code(s): J18.9 - PNEUMONIA, UNSPECIFIED ORGANISM (2) Hypoxia Assessment/Plan: Oxygen via nasal cannula. Code(s): R09.02 - HYPOXEMIA (3) Hypokalemia Assessment/Plan: IV potassium chloride. Code(s): E87.6 - HYPOKALEMIA Assessment/Plan Plan: acute multi-lobar pneumonia, acute toxic metabolic encephalopathy, acute exacerbation of vascular dementia with combative behavior, acute hypokalemia, acute hyperbilirubinemia and transaminasemia, acute leukocytosis diminished to normal level, IV Zosyn and Azithromycin, physical therapy, discussed clinical condition of the patient with her daughters Gracie and Irish. Received flu vaccine on 03/13/19.
[2019-03-16] MEDS: PIPERACILLIN/TAZOB 3.375 GM 3.375 GM in DEXTROSE 5%-WATER - 50 ML IVPB SCH ×3 (02:00→18:00)
[2019-03-16] MEDS ORDERED: PIPERACILLIN/TAZOBACTAM 3.375 GM VIAL IVPB ONE ×3 (02:15→16:57)
[2019-03-16] MEDS ORDERED: DEXTROSE 5%-WATER - 50 ML IVPB ONE ×3 (02:15→16:57)
[2019-03-16 07:01] LABS: BASO % 0.4 % (0-2.0); EOS % 0.2 % (0-4.5); HEMATOCRIT 34.9 % (32.4-45.2); HEMOGLOBIN 11.7 GM/dL (10.7-15.3); LYMPH % 14.1 % (8-40); MCH 30.8 pg (25.7-33.7); MCHC 33.5 g/dl (32.0-36.0); MEAN PLT VOLUME 8.5 fl (7.5-11.1); MONO % 6.5 % (3.8-10.2); NEUT % 78.8 % (42.8-82.8); PLATELET COUNT 329 K/MM3 (134-434); RDW 14.9 % (11.6-15.6)
[2019-03-16 07:55] LABS: ALBUMIN 3.2 g/dl (3.4-5.0); BILIRUBIN,TOTAL 1.6 mg/dL (0.2-1); CALCIUM 8.8 mg/dL (8.5-10.1); CREATININE 1.1 mg/dL (0.55-1.3); POTASSIUM 3.4 mmol/L (3.5-5.1); TOT PROT 6.6 g/dl (6.4-8.2)
[2019-03-16] MEDS ORDERED: FUROSEMIDE 40 MG/4 ML INJECTABLE VIAL IVPUSH SCH (10:00)
[2019-03-16] MEDS ORDERED: INSULIN (NOVOLOG MIX 70/30) 100 UNITS/ML MDV SQ SCH (10:00)
[2019-03-16] MEDS: ENOXAPARIN NA (PORCINE) 40 MG/0.4 ML DISP.SYRIN SQ SCH (10:02)
[2019-03-16] MEDS: INSULIN (NOVOLOG MIX 70/30) 100 UNITS/ML MDV SQ SCH (10:03)
[2019-03-16] MEDS: AZITHROMYCIN IVPB 500 MG/250 ML BAG IVPB SCH (10:49)
[2019-03-16] MEDS: KCL 10 MEQ IVPB 10 MEQ/100 ML INFUS.BAG IVPB SCH ×2 (11:53→13:16)
[2019-03-16] MEDS ORDERED: INSULIN (NOVOLOG) ASPART 100 UNITS/ML 10ML VIAL SQ ONE (14:35)
[2019-03-16] MEDS ORDERED: LORazepam 2 MG/ML SDV VIAL IVPUSH SCH (14:40)
--- NOTE | 2019-03-16 14:43 | PN ---
Progress Note, Physician Chief Complaint: Refuses to take any of the oral medications, poor appetite, visual and auditory hallucinations, wants to go home. History of Present Illness: This 83 yr old Cameroonian speaking female with history of type 2 diabetes, vascular dementia with combative behavior, HCVD with CHF, cardiomegaly, hypothyroidism and chronic cerebellar stroke admitted via ER with acute multi-lobar pneumonia, toxic metabolic encephalopathy, and severe hypoxemia. - Current Medication List Current Medications: Active Medications Enoxaparin Sodium (Lovenox -) 40 mg SQ DAILY [facility] Last Admin: 03/16/19 10:02 Dose: 40 mg Furosemide (Lasix Injection -) 20 mg IVPUSH Q48H [facility] Hydralazine HCl (Apresoline Injection -) 10 mg IVPUSH Q6H PRN PRN Reason: HYPERTENSION (> 150/90) Last Admin: 03/14/19 21:39 Dose: 10 mg Azithromycin (Zithromax 500mg Ivpb (Pre-Docked)) 500 mg in 250 mls @ 250 mls/ hr IVPB DAILY [facility] Last Admin: 03/16/19 10:49 Dose: 250 mls/hr Piperacillin Sod/Tazobactam (Sod 3.375 gm/ Dextrose) 50 mls @ 100 mls/hr IVPB Q8H-IV [facility]; Protocol Last Admin: 03/16/19 10:04 Dose: 100 mls/hr Insulin Aspart (Novolog Mix 70/30 Vial) 20 units SQ Q24H [facility] Last Admin: 03/16/19 10:03 Dose: 20 units Insulin Human Regular (Novolin R Vial *For Ivpush Or Iv Drip Only*) 5 units SQ ONCE ONE Stop: 03/16/19 14:36 Lorazepam (Ativan Injection -) 1 mg IVPUSH BID [facility] - Objective Vital Signs: Vital Signs Temperature 97.9 F 03/16/19 09:06 Pulse Rate 80 03/16/19 09:06 Respiratory Rate 18 03/16/19 09:06 Blood Pressure 162/79 03/16/19 09:06 O2 Sat by Pulse Oximetry (%) 95 03/16/19 09:00 Constitutional: Yes: Well Nourished, Anxious, Moderate Distress Eyes: Yes: Conjunctiva Clear, EOM Intact, Other (resolving small left subconjunctival hemorrhage) HENT: Yes: Atraumatic, Normocephalic Neck: Yes: Supple, Trachea Midline Cardiovascular: Yes: Regular Rate and Rhythm Respiratory: Yes: Regular, CTA Bilaterally, On Nasal O2 Gastrointestinal: Yes: Normal Bowel Sounds, Soft ...Rectal Exam: Yes: Deferred Genitourinary: Yes: WNL Breast(s): Yes: WNL Musculoskeletal: Yes: WNL Extremities: Yes: Cool Edema: LLE: 1+, RLE: 1+ Peripheral Pulses WNL: Yes Peripheral Pulses: Left Radial: 3+, Right Radial: 3+, Left Doralis Pedis: 2+, Right Dorsalis Pedis: 2+, Left Femoral: 3+, Right Femoral: 3+ Integumentary: Yes: WNL Neurological: Yes: Alert, Oriented, Confusion, Unsteady Gait, Other (visual and auditory hallucinations) ...Motor Strength: WNL Psychiatric: Yes: Alert, Oriented, Agitated Labs: CBC, BMP 03/16/19 05:40 03/16/19 06:05 INR, PTT INR 1.88 (0.83-1.09) H 03/12/19 19:00 - ....Imaging Other: Report Reviewed (Lab data reviewed.) Problem List - Problems (1) Pneumonia Assessment/Plan: IV Zosyn and Azithromycin Code(s): J18.9 - PNEUMONIA, UNSPECIFIED ORGANISM (2) Hypoxia Assessment/Plan: Oxygen via nasal cannula Code(s): R09.02 - HYPOXEMIA (3) Hypokalemia Assessment/Plan: IV potassium chloride Code(s): E87.6 - HYPOKALEMIA (4) Generalized anxiety disorder Assessment/Plan: IV Ativan Code(s): F41.1 - GENERALIZED ANXIETY DISORDER Assessment/Plan Plan: acute multi-lobar pneumonia, severe hypoxemia, toxic metabolic encephalopathy, vascular dementia with combative behavior, acute hypokalemia, acute hyperbilirubinemia, acute transaminasemia, acute leukocytosis; IV Zosyn and Azithromycin, discussed clinical condition of the patient with her daughters Gracie and Irish.
[2019-03-16] MEDS: hydrALAZINE HCL 20 MG/ML VIAL IVPUSH PRN (17:06)
[2019-03-16] MEDS ORDERED: D5-1/2NS+20 MEQ KCL - 20 MEQ/1,000 ML INFUS.BAG IV SCH (19:00)
[2019-03-17] MEDS ORDERED: DEXTROSE 5%-WATER - 50 ML IVPB ONE ×2 (02:40→09:28)
[2019-03-17] MEDS ORDERED: PIPERACILLIN/TAZOBACTAM 3.375 GM VIAL IVPB ONE ×2 (02:40→09:27)
[2019-03-17] MEDS: PIPERACILLIN/TAZOB 3.375 GM 3.375 GM in DEXTROSE 5%-WATER - 50 ML IVPB SCH ×3 (02:54→19:11)
[2019-03-17] MEDS: hydrALAZINE HCL 20 MG/ML VIAL IVPUSH PRN (06:32)
[2019-03-17 06:50] LABS: BASO % 0.1 % (0-2.0); EOS % 0.2 % (0-4.5); HEMATOCRIT 31.6 % (32.4-45.2); HEMOGLOBIN 10.8 GM/dL (10.7-15.3); LYMPH % 12.3 % (8-40); MCH 31.1 pg (25.7-33.7); MCHC 34.1 g/dl (32.0-36.0); MEAN CELL VOLUME 91.3 fl (80-96); MONO % 5.9 % (3.8-10.2); NEUT % 81.5 % (42.8-82.8); PLATELET COUNT 309 K/MM3 (134-434); RBC 3.47 M/mm3 (3.60-5.2); RDW 14.6 % (11.6-15.6); WHITE BLOOD COUNT 8.9 K/mm3 (4.0-10.0)
[2019-03-17 07:15] LABS: ALBUMIN 2.9 g/dl (3.4-5.0); BILIRUBIN,TOTAL 1.5 mg/dL (0.2-1); BLOOD UREA NITROGEN 13.6 mg/dL (7-18); CALCIUM 8.6 mg/dL (8.5-10.1); CREATININE 1.1 mg/dL (0.55-1.3); POTASSIUM 3.4 mmol/L (3.5-5.1)
[2019-03-17] MEDS: ENOXAPARIN NA (PORCINE) 40 MG/0.4 ML DISP.SYRIN SQ SCH (09:41)
[2019-03-17] MEDS: NYSTATIN 500,000 UNITS/5 ML SUSPENSION PO SCH ×5 (09:41→22:26)
[2019-03-17] MEDS: D5-1/2NS+20 MEQ KCL - 20 MEQ/1,000 ML INFUS.BAG IV SCH (09:46)
[2019-03-17] MEDS ORDERED: FUROSEMIDE 40 MG/4 ML INJECTABLE VIAL IVPUSH SCH (10:00)
[2019-03-17] MEDS ORDERED: LORazepam 2 MG/ML SDV VIAL IVPUSH SCH (10:00)
[2019-03-17] MEDS: INSULIN (NOVOLOG MIX 70/30) 100 UNITS/ML MDV SQ SCH (10:02)
[2019-03-17] MEDS: AZITHROMYCIN IVPB 500 MG/250 ML BAG IVPB SCH (11:12)
--- NOTE | 2019-03-17 12:51 | PN ---
Progress Note, Physician Chief Complaint: Appetite improved, appears to be more alert and cooperative today, generalized muscle weakness, unsteadiness on feet. History of Present Illness: This 83 yr old w/f with history of HCVD with CHF, cardiomegaly, hypothyroidism, type 2 diabetes, vascular dementia with combative behavior, hyperlipidemia admitted via ER with acute multi-lobar pneumonia, toxic metabolic encephalopathy , and acute severe hypoxemia. - Current Medication List Current Medications: Active Medications Enoxaparin Sodium (Lovenox -) 40 mg SQ DAILY [facility] Last Admin: 03/17/19 09:41 Dose: 40 mg Furosemide (Lasix Injection -) 20 mg IVPUSH Q48H [facility] Last Admin: 03/17/19 09:45 Dose: 20 mg Hydralazine HCl (Apresoline Injection -) 10 mg IVPUSH Q6H PRN PRN Reason: HYPERTENSION (> 150/90) Last Admin: 03/17/19 06:32 Dose: 10 mg Azithromycin (Zithromax 500mg Ivpb (Pre-Docked)) 500 mg in 250 mls @ 250 mls/ hr IVPB DAILY [facility] Last Admin: 03/17/19 11:12 Dose: 250 mls/hr Piperacillin Sod/Tazobactam (Sod 3.375 gm/ Dextrose) 50 mls @ 100 mls/hr IVPB Q8H-IV [facility]; Protocol Last Admin: 03/17/19 09:46 Dose: 100 mls/hr Potassium Chloride/Dextrose/Sod Cl (D5-1/2ns+20 Meq Kcl -) 20 meq in 1,000 mls @ 42 mls/hr IV ASDIR [facility] Last Admin: 03/17/19 09:46 Dose: 42 mls/hr Insulin Aspart (Novolog Mix 70/30 Vial) 20 units SQ Q24H [facility] Last Admin: 03/17/19 10:02 Dose: 20 units Lorazepam (Ativan Injection -) 0.5 mg IVPUSH BID [facility] Last Admin: 03/17/19 09:45 Dose: 0.5 mg Nystatin (Nystatin Oral Suspension -) 500,000 units PO QID [facility] Last Admin: 03/17/19 09:45 Dose: 500,000 units - Objective Vital Signs: Vital Signs Temperature 97.6 F 03/17/19 08:18 Pulse Rate 71 03/17/19 08:18 Respiratory Rate 18 03/17/19 09:00 Blood Pressure 147/66 03/17/19 08:18 O2 Sat by Pulse Oximetry (%) 98 03/17/19 09:00 Constitutional: Yes: Well Nourished, Calm, Mild Distress Eyes: Yes: Conjunctiva Clear, EOM Intact HENT: Yes: Atraumatic, Normocephalic Neck: Yes: Supple, Trachea Midline Cardiovascular: Yes: Regular Rate and Rhythm Respiratory: Yes: Regular, CTA Bilaterally, On Nasal O2 Gastrointestinal: Yes: Normal Bowel Sounds, Soft ...Rectal Exam: Yes: Deferred Genitourinary: Yes: WNL Breast(s): Yes: WNL Musculoskeletal: Yes: Muscle Weakness Extremities: Yes: Cool Edema: Yes Edema: LLE: 1+, RLE: 1+ Peripheral Pulses WNL: Yes Peripheral Pulses: Left Radial: 3+, Right Radial: 3+, Left Doralis Pedis: 2+, Right Dorsalis Pedis: 2+, Left Femoral: 3+, Right Femoral: 3+ Integumentary: Yes: WNL Neurological: Yes: Alert, Oriented, Unsteady Gait, Weakness ...Motor Strength: WNL Psychiatric: Yes: Alert, Oriented Labs: CBC, BMP 03/17/19 05:45 03/17/19 05:45 INR, PTT INR 1.88 (0.83-1.09) H 03/12/19 19:00 - ....Imaging Ultrasound: Report Reviewed (Lab data and doppler of lower extremities report noted.) Other: Report Reviewed Problem List - Problems (1) Pneumonia Assessment/Plan: IV Zosyn and Azithromycin Code(s): J18.9 - PNEUMONIA, UNSPECIFIED ORGANISM (2) Hypoxia Assessment/Plan: oxygen via nasal cannula Code(s): R09.02 - HYPOXEMIA (3) Hypokalemia Assessment/Plan: IV potassium chloride Code(s): E87.6 - HYPOKALEMIA (4) Generalized anxiety disorder Assessment/Plan: Oral Alprazolam Code(s): F41.1 - GENERALIZED ANXIETY DISORDER (5) Oral candidiasis Assessment/Plan: Oral mycostatin suspension. Code(s): B37.0 - CANDIDAL STOMATITIS Assessment/Plan Plan: acute multi-lobar pneumonia, toxic metabolic encephalopathy, hypoxemia, acute hypokalemia, acute oral candidiasis, acute transaminasemia, acute hyperbilirubinemia; IV fluids, IV potassium chloride, IV Zosyn and Azithromycin , physical therapy, discussed clinical condition of the patient with her daughter Gracie.
[2019-03-17] MEDS: AMIODARONE HCL 200 MG TABLET (FP) PO SCH (14:11)
--- NOTE | 2019-03-17 16:45 | PN ---
Progress Note, Physician History of Present Illness: AWAKE, ALERT SEATED IN BED DAUGHTER AT BEDSIDE REPORTS MENTAL STATUS IMPROVED NO COMPLAINTS BREATHING NON LABORED AFEBRILE WBC IMPROVED BC (-) LEGIONELLA AG (-) - Current Medication List Current Medications: Active Medications Alprazolam (Xanax -) 0.25 mg PO BID [facility] Amiodarone HCl (Cordarone -) 200 mg PO DAILY [facility] Last Admin: 03/17/19 14:11 Dose: 200 mg Enoxaparin Sodium (Lovenox -) 40 mg SQ DAILY [facility] Last Admin: 03/17/19 09:41 Dose: 40 mg Furosemide (Lasix -) 80 mg PO BID@0600,1400 [facility] Hydralazine HCl (Apresoline -) 50 mg PO Q12H [facility] Azithromycin (Zithromax 500mg Ivpb (Pre-Docked)) 500 mg in 250 mls @ 250 mls/ hr IVPB DAILY [facility] Last Admin: 03/17/19 11:12 Dose: 250 mls/hr Piperacillin Sod/Tazobactam (Sod 3.375 gm/ Dextrose) 50 mls @ 100 mls/hr IVPB Q8H-IV [facility]; Protocol Last Admin: 03/17/19 09:46 Dose: 100 mls/hr Potassium Chloride/Dextrose/Sod Cl (D5-1/2ns+20 Meq Kcl -) 20 meq in 1,000 mls @ 42 mls/hr IV [facility]IR [facility] Last Admin: 03/17/19 09:46 Dose: 42 mls/hr Insulin Aspart (Novolog Mix 70/30 Vial) 20 units SQ Q24H [facility] Last Admin: 03/17/19 10:02 Dose: 20 units Levothyroxine Sodium (Synthroid -) 25 mcg PO DAILY@0700 [facility] Nystatin (Nystatin Oral Suspension -) 500,000 units PO QID [facility] Last Admin: 03/17/19 14:11 Dose: 500,000 units - Objective Vital Signs: Vital Signs Temperature 97.5 F L 03/17/19 13:28 Pulse Rate 66 03/17/19 13:28 Respiratory Rate 16 03/17/19 13:28 Blood Pressure 141/70 03/17/19 13:28 O2 Sat by Pulse Oximetry (%) 98 03/17/19 09:00 Constitutional: Yes: No Distress HENT: Yes: Thrush Cardiovascular: Yes: Regular Rate and Rhythm, S1, S2 Respiratory: Yes: Rhonchi Gastrointestinal: Yes: Normal Bowel Sounds, Soft, Abdomen, Obese. No: Tenderness Labs: CBC, BMP 03/17/19 05:45 03/17/19 05:45 INR, PTT INR 1.88 (0.83-1.09) H 03/12/19 19:00 Assessment/Plan MULTILOBAR PNEUMONIA TOXIC METABOLIC ENCEPHALOPATHY IMPROVED LEUKOCYTOSIS IMPROVED AZOTEMIA IMPROVED THRUSH ELEVATED LFTS CONTINUE ZOSYN NYSTATIN FOR THRUSH
[2019-03-17] MEDS: hydrALAZINE HCL 50 MG TABLET (FP) PO SCH (22:26)
[2019-03-17] MEDS: ALPRAZolam 0.25 MG TABLET PO SCH (22:26)
[2019-03-18] MEDS ORDERED: DEXTROSE 5%-WATER - 50 ML IVPB ONE ×3 (01:52→17:26)
[2019-03-18] MEDS ORDERED: PIPERACILLIN/TAZOBACTAM 3.375 GM VIAL IVPB ONE ×3 (01:52→17:25)
[2019-03-18] MEDS: PIPERACILLIN/TAZOB 3.375 GM 3.375 GM in DEXTROSE 5%-WATER - 50 ML IVPB SCH ×3 (02:54→18:42)
[2019-03-18 06:43] LABS: BASO % 0.3 % (0-2.0); EOS % 1.5 % (0-4.5); HEMATOCRIT 31.8 % (32.4-45.2); HEMOGLOBIN 10.7 GM/dL (10.7-15.3); LYMPH % 12.7 % (8-40); MCH 30.8 pg (25.7-33.7); MCHC 33.5 g/dl (32.0-36.0); MEAN PLT VOLUME 7.6 fl (7.5-11.1); MONO % 6.9 % (3.8-10.2); NEUT % 78.6 % (42.8-82.8); PLATELET COUNT 301 K/MM3 (134-434); RBC 3.46 M/mm3 (3.60-5.2); WHITE BLOOD COUNT 8.9 K/mm3 (4.0-10.0)
[2019-03-18] MEDS: LEVOTHYROXINE NA 25 MCG TABLET (FP) PO SCH (06:52)
[2019-03-18 07:28] LABS: ALBUMIN 2.7 g/dl (3.4-5.0); BILIRUBIN,TOTAL 1.4 mg/dL (0.2-1); BLOOD UREA NITROGEN 11.2 mg/dL (7-18); CALCIUM 7.8 mg/dL (8.5-10.1); CREATININE 0.9 mg/dL (0.55-1.3); POTASSIUM 3.2 mmol/L (3.5-5.1); TOT PROT 5.6 g/dl (6.4-8.2)
[2019-03-18] MEDS: INSULIN (NOVOLOG MIX 70/30) 100 UNITS/ML MDV SQ SCH (09:28)
[2019-03-18] MEDS: ENOXAPARIN NA (PORCINE) 40 MG/0.4 ML DISP.SYRIN SQ SCH (09:29)
[2019-03-18] MEDS: NYSTATIN 500,000 UNITS/5 ML SUSPENSION PO SCH ×4 (09:30→22:11)
[2019-03-18] MEDS: ALPRAZolam 0.25 MG TABLET PO SCH ×2 (09:30→22:10)
[2019-03-18] MEDS: AMIODARONE HCL 200 MG TABLET (FP) PO SCH (09:30)
[2019-03-18] MEDS: hydrALAZINE HCL 50 MG TABLET (FP) PO SCH ×2 (09:30→22:11)
[2019-03-18] MEDS: POTASSIUM CHLORIDE TABS 20 MEQ TABLET.ER (FP) PO SCH ×2 (11:19→22:11)
[2019-03-18] MEDS: AZITHROMYCIN IVPB 500 MG/250 ML BAG IVPB SCH (12:25)
--- NOTE | 2019-03-18 13:48 | PN ---
Progress Note, Physician Chief Complaint: Appetite improved, more alert, attentive, and cooperative, no combative behavior. History of Present Illness: This 83 yr old Kazakh speaking female with history of type 2 diabetes, HCVD with CHF, cardiomegaly, hyperlipidemia, hypothyroidism, admitted via ER with acute bilateral multi-lobar pneumonia, toxic metabolic encephalopathy, and acute severe hypoxemia. - Current Medication List Current Medications: Active Medications Alprazolam (Xanax -) 0.25 mg PO BID [facility] Last Admin: 03/18/19 09:30 Dose: 0.25 mg Amiodarone HCl (Cordarone -) 200 mg PO DAILY [facility] Last Admin: 03/18/19 09:30 Dose: 200 mg Enoxaparin Sodium (Lovenox -) 40 mg SQ DAILY [facility] Last Admin: 03/18/19 09:29 Dose: 40 mg Furosemide (Lasix -) 80 mg PO BID@0600,1400 [facility] Hydralazine HCl (Apresoline -) 50 mg PO Q12H [facility] Last Admin: 03/18/19 09:30 Dose: 50 mg Azithromycin (Zithromax 500mg Ivpb (Pre-Docked)) 500 mg in 250 mls @ 250 mls/ hr IVPB DAILY [facility] Last Admin: 03/18/19 12:25 Dose: 250 mls/hr Piperacillin Sod/Tazobactam (Sod 3.375 gm/ Dextrose) 50 mls @ 100 mls/hr IVPB Q8H-IV [facility]; Protocol Last Admin: 03/18/19 11:12 Dose: 100 mls/hr Insulin Aspart (Novolog Mix 70/30 Vial) 20 units SQ Q24H [facility] Last Admin: 03/18/19 09:28 Dose: 20 units Levothyroxine Sodium (Synthroid -) 25 mcg PO DAILY@0700 [facility] Last Admin: 03/18/19 06:52 Dose: 25 mcg Nystatin (Nystatin Oral Suspension -) 500,000 units PO QID [facility] Last Admin: 03/18/19 09:30 Dose: 500,000 units Potassium Chloride (K-Dur -) 20 meq PO BID [facility] Last Admin: 03/18/19 11:19 Dose: 20 meq - Objective Vital Signs: Vital Signs Temperature 97.7 F 03/18/19 09:25 Pulse Rate 71 03/18/19 09:25 Respiratory Rate 18 03/18/19 09:25 Blood Pressure 153/69 03/18/19 09:25 O2 Sat by Pulse Oximetry (%) 97 03/17/19 21:00 Constitutional: Yes: Well Nourished, Calm, Mild Distress Eyes: Yes: Conjunctiva Clear, EOM Intact HENT: Yes: Thrush, Other (ulcer behind right auricle) Neck: Yes: Supple, Trachea Midline Cardiovascular: Yes: Regular Rate and Rhythm Respiratory: Yes: Regular, CTA Bilaterally, On Nasal O2 Gastrointestinal: Yes: Normal Bowel Sounds, Soft ...Rectal Exam: Yes: Deferred Genitourinary: Yes: WNL Breast(s): Yes: WNL Musculoskeletal: Yes: Muscle Weakness Extremities: Yes: Cool Edema: LLE: 1+, RLE: 1+ Peripheral Pulses WNL: Yes Peripheral Pulses: Left Radial: 3+, Right Radial: 3+, Left Doralis Pedis: 2+, Right Dorsalis Pedis: 2+, Left Femoral: 3+, Right Femoral: 3+ Integumentary: Yes: Other (ulcer behind right auricle, traumatic) Wound/Incision: Yes: Open to air (ulcer behind right auricle) Neurological: Yes: Alert, Oriented, Unsteady Gait ...Motor Strength: WNL Psychiatric: Yes: Alert, Oriented Labs: CBC, BMP 03/18/19 05:55 03/18/19 05:55 INR, PTT INR 1.88 (0.83-1.09) H 03/12/19 19:00 - ....Imaging Other: Report Reviewed (Lab data reviewed. ID note read and appreciated.) Problem List - Problems (1) Pneumonia Assessment/Plan: IV Zosyn and Azithromcyin Code(s): J18.9 - PNEUMONIA, UNSPECIFIED ORGANISM (2) Hypoxia Assessment/Plan: Oxygen via nasal cannula Code(s): R09.02 - HYPOXEMIA (3) Hypokalemia Assessment/Plan: Oral potassium chloride Code(s): E87.6 - HYPOKALEMIA (4) Generalized anxiety disorder Assessment/Plan: oral Alprazolam Code(s): F41.1 - GENERALIZED ANXIETY DISORDER (5) Oral candidiasis Assessment/Plan: Oral Mycostatin suspension Code(s): B37.0 - CANDIDAL STOMATITIS Assessment/Plan Plan: acute bilateral multi-lobar pneumonia improved, toxic metabolic encephalopathy improved, severe hypoxemia improved, acute hypokalemia, acute transaminasemia gradually diminishing, acute hyperbilirubinemia gradually diminishing; IV Zosyn and Azithromycin, oxygen via nasal cannula, physical therapy, discussed clinical condition of the patient with her daughter Gracie and will speak with Dr. Oliver, discharge planning.
[2019-03-18] MEDS: metoPROLOL SUCCINATE 25 MG TAB.SR.24H (FP) PO SCH (14:23)
[2019-03-18] MEDS: FUROSEMIDE 40 MG TABLET (FP) PO SCH (14:24)
[2019-03-18] MEDS ORDERED: PT OWN MED DRAWER 7, Y5N ONE ×2 (18:55→21:51)
--- NOTE | 2019-03-18 21:34 | PN ---
Progress Note, Physician History of Present Illness: AWAKE, ALERT SEATED IN BED DAUGHTER AT BEDSIDE REPORTS OVERALL STATUS IMPROVED NO COMPLAINTS BREATHING NON LABORED AFEBRILE WBC IMPROVED BC (-) LEGIONELLA AG (-) - Current Medication List Current Medications: Active Medications Alprazolam (Xanax -) 0.25 mg PO BID [facility] Last Admin: 03/18/19 09:30 Dose: 0.25 mg Amiodarone HCl (Cordarone -) 200 mg PO DAILY [facility] Last Admin: 03/18/19 09:30 Dose: 200 mg Bacitracin/Polymyxin B Sulfate (Polysporin Ointment -) 1 applic TP BID [facility] Enoxaparin Sodium (Lovenox -) 40 mg SQ DAILY [facility] Last Admin: 03/18/19 09:29 Dose: 40 mg Furosemide (Lasix -) 80 mg PO BID@0600,1400 [facility] Last Admin: 03/18/19 14:24 Dose: 80 mg Hydralazine HCl (Apresoline -) 50 mg PO Q12H [facility] Last Admin: 03/18/19 09:30 Dose: 50 mg Azithromycin (Zithromax 500mg Ivpb (Pre-Docked)) 500 mg in 250 mls @ 250 mls/ hr IVPB DAILY [facility] Last Admin: 03/18/19 12:25 Dose: 250 mls/hr Piperacillin Sod/Tazobactam (Sod 3.375 gm/ Dextrose) 50 mls @ 100 mls/hr IVPB Q8H-IV [facility]; Protocol Last Admin: 03/18/19 18:42 Dose: 100 mls/hr Insulin Aspart (Novolog Mix 70/30 Vial) 20 units SQ Q24H [facility] Last Admin: 03/18/19 09:28 Dose: 20 units Levothyroxine Sodium (Synthroid -) 25 mcg PO DAILY@0700 [facility] Last Admin: 03/18/19 06:52 Dose: 25 mcg Lisinopril (Prinivil) 40 mg PO Q24H [facility] Metoprolol Succinate (Toprol Xl -) 12.5 mg PO DAILY [facility] Last Admin: 03/18/19 14:23 Dose: 12.5 mg Nystatin (Nystatin Oral Suspension -) 500,000 units PO QID [facility] Last Admin: 03/18/19 18:42 Dose: 500,000 units Potassium Chloride (K-Dur -) 20 meq PO BID [facility] Last Admin: 03/18/19 11:19 Dose: 20 meq - Objective Vital Signs: Vital Signs Temperature 98.0 F 03/18/19 18:00 Pulse Rate 60 03/18/19 18:00 Respiratory Rate 18 03/18/19 18:00 Blood Pressure 164/77 03/18/19 18:00 O2 Sat by Pulse Oximetry (%) 98 03/18/19 09:00 Constitutional: Yes: No Distress Cardiovascular: Yes: Regular Rate and Rhythm, S1, S2 Respiratory: Yes: CTA Bilaterally Gastrointestinal: Yes: Normal Bowel Sounds, Soft Edema: No Labs: CBC, BMP 03/18/19 05:55 03/18/19 05:55 INR, PTT INR 1.88 (0.83-1.09) H 03/12/19 19:00 Assessment/Plan MULTILOBAR PNEUMONIA TOXIC METABOLIC ENCEPHALOPATHY IMPROVED LEUKOCYTOSIS IMPROVED AZOTEMIA IMPROVED THRUSH IMPROVED ELEVATED LFTS CONTINUE ZOSYN
[2019-03-18] MEDS: D5-1/2NS+20 MEQ KCL - 20 MEQ/1,000 ML INFUS.BAG IV SCH (22:17)
[2019-03-18] MEDS: BACITRACIN/POLYMYXIN B SULFATE 15 GM TUBE TP SCH (23:05)
[2019-03-19] MEDS ORDERED: DEXTROSE 5%-WATER - 50 ML IVPB ONE ×3 (01:17→17:13)
[2019-03-19] MEDS ORDERED: PIPERACILLIN/TAZOBACTAM 3.375 GM VIAL IVPB ONE ×3 (01:17→17:13)
[2019-03-19] MEDS: PIPERACILLIN/TAZOB 3.375 GM 3.375 GM in DEXTROSE 5%-WATER - 50 ML IVPB SCH ×3 (02:05→18:20)
[2019-03-19] MEDS: LEVOTHYROXINE NA 25 MCG TABLET (FP) PO SCH (06:32)
[2019-03-19] MEDS: FUROSEMIDE 40 MG TABLET (FP) PO SCH ×2 (06:32→13:47)
[2019-03-19 07:42] LABS: BASO % 0.4 % (0-2.0); EOS % 3.4 % (0-4.5); HEMATOCRIT 32.7 % (32.4-45.2); HEMOGLOBIN 10.8 GM/dL (10.7-15.3); LYMPH % 12.7 % (8-40); MCH 30.5 pg (25.7-33.7); MCHC 33.1 g/dl (32.0-36.0); MEAN CELL VOLUME 92.1 fl (80-96); MEAN PLT VOLUME 7.8 fl (7.5-11.1); MONO % 7.1 % (3.8-10.2); NEUT % 76.4 % (42.8-82.8); PLATELET COUNT 315 K/MM3 (134-434); RBC 3.55 M/mm3 (3.60-5.2); WHITE BLOOD COUNT 7.8 K/mm3 (4.0-10.0)
[2019-03-19] MEDS: LISINOPRIL 20 MG TABLET (FP) PO SCH (08:19)
[2019-03-19 08:31] LABS: ALBUMIN 2.6 g/dl (3.4-5.0); BILIRUBIN,TOTAL 1.4 mg/dL (0.2-1); BLOOD UREA NITROGEN 11.2 mg/dL (7-18); CALCIUM 8.1 mg/dL (8.5-10.1); CREATININE 0.9 mg/dL (0.55-1.3); POTASSIUM 3.5 mmol/L (3.5-5.1); TOT PROT 5.7 g/dl (6.4-8.2)
[2019-03-19] MEDS: hydrALAZINE HCL 50 MG TABLET (FP) PO SCH ×2 (09:13→21:29)
[2019-03-19] MEDS: INSULIN (NOVOLOG MIX 70/30) 100 UNITS/ML MDV SQ SCH (09:14)
[2019-03-19] MEDS: AMIODARONE HCL 200 MG TABLET (FP) PO SCH (09:15)
[2019-03-19] MEDS: NYSTATIN 500,000 UNITS/5 ML SUSPENSION PO SCH ×4 (09:15→21:29)
[2019-03-19] MEDS: POTASSIUM CHLORIDE TABS 20 MEQ TABLET.ER (FP) PO SCH ×2 (09:15→21:29)
[2019-03-19] MEDS: metoPROLOL SUCCINATE 25 MG TAB.SR.24H (FP) PO SCH (09:16)
[2019-03-19] MEDS: ALPRAZolam 0.25 MG TABLET PO SCH ×2 (09:16→21:29)
[2019-03-19] MEDS: ENOXAPARIN NA (PORCINE) 40 MG/0.4 ML DISP.SYRIN SQ SCH (09:19)
[2019-03-19] MEDS: BACITRACIN/POLYMYXIN B SULFATE 15 GM TUBE TP SCH ×2 (09:19→21:29)
--- NOTE | 2019-03-19 11:10 | PN ---
Progress Note, Physician Chief Complaint: Appetite improved, remains more awake, alert, attentive, and cooperative; no combative behavior. History of Present Illness: This 83 yr old w/f with history of type 2 diabetes, HCVD with CHF, hypothyroidism, anxiety, hyperlipidemia, chronic cerebellar stroke admitted via ER with acute bilateral multi-lobar pneumonia, acute toxic metabolic encephalopathy, and acute hypoxemia. - Current Medication List Current Medications: Active Medications Alprazolam (Xanax -) 0.25 mg PO BID [facility] Last Admin: 03/19/19 09:16 Dose: 0.25 mg Amiodarone HCl (Cordarone -) 200 mg PO DAILY [facility] Last Admin: 03/19/19 09:15 Dose: 200 mg Bacitracin/Polymyxin B Sulfate (Polysporin Ointment -) 1 applic TP BID [facility] Last Admin: 03/19/19 09:19 Dose: 1 applic Enoxaparin Sodium (Lovenox -) 40 mg SQ DAILY [facility] Last Admin: 03/19/19 09:19 Dose: Not Given Furosemide (Lasix -) 80 mg PO BID@0600,1400 [facility] Last Admin: 03/19/19 06:32 Dose: 80 mg Hydralazine HCl (Apresoline -) 50 mg PO Q12H [facility] Last Admin: 03/19/19 09:13 Dose: 50 mg Piperacillin Sod/Tazobactam (Sod 3.375 gm/ Dextrose) 50 mls @ 100 mls/hr IVPB Q8H-IV [facility]; Protocol Last Admin: 03/19/19 09:17 Dose: 100 mls/hr Insulin Aspart (Novolog Mix 70/30 Vial) 20 units SQ Q24H [facility] Last Admin: 03/19/19 09:14 Dose: 20 units Levothyroxine Sodium (Synthroid -) 25 mcg PO DAILY@0700 [facility] Last Admin: 03/19/19 06:32 Dose: 25 mcg Lisinopril (Prinivil) 40 mg PO Q24H [facility] Last Admin: 03/19/19 08:19 Dose: 40 mg Metoprolol Succinate (Toprol Xl -) 12.5 mg PO DAILY [facility] Last Admin: 03/19/19 09:16 Dose: 12.5 mg Nystatin (Nystatin Oral Suspension -) 500,000 units PO QID [facility] Last Admin: 03/19/19 09:15 Dose: 500,000 units Potassium Chloride (K-Dur -) 20 meq PO BID [facility] Last Admin: 03/19/19 09:15 Dose: 20 meq - Objective Vital Signs: Vital Signs Temperature 97.8 F 03/19/19 09:10 Pulse Rate 63 03/19/19 09:10 Respiratory Rate 18 03/19/19 09:10 Blood Pressure 154/75 03/19/19 09:10 O2 Sat by Pulse Oximetry (%) 97 03/18/19 21:00 Constitutional: Yes: Well Nourished, Calm (in presence of her daughter), Mild Distress Eyes: Yes: Conjunctiva Clear, EOM Intact HENT: Yes: Atraumatic, Normocephalic, Thrush, Other (small pressure ulcer behind right ear) Neck: Yes: Supple, Trachea Midline Cardiovascular: Yes: Regular Rate and Rhythm Respiratory: Yes: Regular, CTA Bilaterally, Dullness (right lower base), On Nasal O2 Gastrointestinal: Yes: Normal Bowel Sounds, Soft ...Rectal Exam: Yes: Deferred Genitourinary: Yes: WNL Breast(s): Yes: WNL Musculoskeletal: Yes: Muscle Weakness Extremities: Yes: Cool Edema: Yes Edema: LLE: 1+, RLE: 1+ Peripheral Pulses: Left Radial: 3+, Right Radial: 3+, Left Doralis Pedis: 2+, Right Dorsalis Pedis: 2+, Left Femoral: 3+, Right Femoral: 3+ Integumentary: Yes: Pressure Ulcer (behind right ear) Wound/Incision: Yes: Open to air (pressure ulcer behind right ear) Neurological: Yes: Alert, Oriented, Pre-Existing Deficit, Unsteady Gait, Weakness ...Motor Strength: WNL Psychiatric: Yes: Alert, Oriented Labs: CBC, BMP 03/19/19 05:50 03/19/19 05:50 INR, PTT INR 1.88 (0.83-1.09) H 03/12/19 19:00 - ....Imaging Other: Report Reviewed (Lab data reviewed.) Problem List - Problems (1) Pneumonia Assessment/Plan: IV Zosyn Code(s): J18.9 - PNEUMONIA, UNSPECIFIED ORGANISM (2) Hypoxia Assessment/Plan: Oxygen via nasal cannula Code(s): R09.02 - HYPOXEMIA (3) Hypokalemia Assessment/Plan: Oral potassium chloride Code(s): E87.6 - HYPOKALEMIA (4) Generalized anxiety disorder Assessment/Plan: Oral Alprazolam Code(s): F41.1 - GENERALIZED ANXIETY DISORDER (5) Oral candidiasis Assessment/Plan: Mycostatin oral suspension Code(s): B37.0 - CANDIDAL STOMATITIS (6) Pleural effusion, right Assessment/Plan: 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 Code(s): J90 - PLEURAL EFFUSION, NOT ELSEWHERE CLASSIFIED Assessment/Plan Plan: Improved acute bilateral multi-lobar pneumonia, toxic metabolic encephalopathy improved, acute hypokalemia, acute moderate right sided pleural effusion, acute hyperbilirubinemia, acute transaminasemia, acute deconditioning ; IV Zosyn, oxygen via nasal cannula, consultation to Pulmonary, right sided thoracentesis, physical therapy, discussed clinical condition of the patient with her daughter Gracie.
--- NOTE | 2019-03-19 12:23 | CON.PULM ---
Consult Consult Specialty:: PULM/CCM Referred by:: KIARA Reason for Consultation:: SOB / PNA - History of Present Illness Chief Complaint: SOB History of Present Illness: 83 F, HTN, HLD, COPD, and CHF. Admitted via the ER due to several days of cough , subjective fevers, and AMS. The daughter was able to measure her O2 saturation at home at 65%. She noted that her mothers mental status also worsened with her degree of hypoxemia. Patients daughter is at the bedside. No travel history or sick contacts. No hemoptysis or night sweats. The patient does have chronic bilateral LE edema for which she is on diuretics. There is no specific history that would be consistent with [facility]. CT: diffuse bilateral pulmonary infiltrates and bilateral pleural effusions with associated compressive atelectasis. 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 No: Asthma, Previously Intubated, Pulmonary Embolus, Pulmonary Fibrosis, Sleep Apnea Gastrointestinal: Yes: GERD Hepatobiliary: Yes: Cholelithiasis, Cholecystitis ...: No Psych: Yes: Anxiety, Psychosis Endocrine: Yes: Diabetes Mellitus, Hypothyroidism - Past Surgical History Past Surgical History: Yes: Cholecystectomy, Hysterectomy, Oopherectomy - Alcohol/Substance Use Hx Alcohol Use: No - Smoking History Smoking history: Never smoked Have you smoked in the past 12 months: No - Social History ADL: Family Assistance Home Medications - Allergies Allergies/Adverse Reactions: Allergies Allergy/AdvReac Type Severity Reaction Status Date / Time No Known Allergies Allergy Verified 03/12/19 18:29 - Home Medications Home Medications: Ambulatory Orders Alprazolam [Xanax] 0.25 mg PO BID 03/12/19 Amiodarone HCl 200 mg PO DAILY 03/12/19 Apixaban [Eliquis] 2.5 mg PO BID 03/12/19 Atorvastatin Ca [Lipitor] 10 mg PO HS 03/12/19 Furosemide [Lasix] 80 mg PO BID 03/12/19 Hydralazine HCl 50 mg PO BID 03/12/19 Insulin (Novolog 70/30) [Novolog Mix 70/30 Vial] 20 units SQ DAILY 03/12/19 Levothyroxine [Synthroid -] 25 mcg PO DAILY 03/12/19 Lisinopril [Zestril] 40 mg PO DAILY 03/12/19 Metoprolol Succinate 12.5 mg PO DAILY 03/12/19 Review of Systems - Review of Systems Constitutional: reports: Chills, Fever, Lethargy, Malaise. denies: Night Sweats , Unintentional Wgt. Loss Eyes: reports: No Symptoms HENT: reports: No Symptoms Neck: reports: No Symptoms Cardiovascular: reports: Edema, Palpitations. denies: Chest Pain, Shortness of Breath Respiratory: reports: Cough, Orthopnea, SOB, SOB on Exertion. denies: Hemoptysis, PND, Snoring, Wheezing Gastrointestinal: reports: No Symptoms Genitourinary: reports: No Symptoms Breasts: reports: No Symptoms Reported Musculoskeletal: reports: No Symptoms Integumentary: reports: No Symptoms Neurological: reports: Change in LOC Endocrine: reports: No Symptoms Hematology/Lymphatic: reports: No Symptoms Psychiatric: reports: No Symptoms Physical Exam Vital Sings: Vital Signs Temperature 97.8 F 03/19/19 09:10 Pulse Rate 63 03/19/19 09:10 Respiratory Rate 18 03/19/19 09:10 Blood Pressure 154/75 03/19/19 09:10 O2 Sat by Pulse Oximetry (%) 96 03/19/19 09:00 Constitutional: Yes: No Distress Eyes: Yes: Conjunctiva Clear, EOM Intact HENT: Yes: Atraumatic, Tonsillar Exudate Neck: Yes: Supple, Trachea Midline Cardiovascular: Yes: Regular Rate and Rhythm Respiratory: Yes: Cough, Diminished, On Nasal O2, Rales, Rhonchi. No: Accessory Muscle Use, SOB, SOB on Exertion, Stridor, Tachypnea, Wheezes ...Inspection: Yes: WNL ...Clubbing: No Gastrointestinal: Yes: Normal Bowel Sounds, Soft, Abdomen, Obese Renal/: Yes: WNL Musculoskeletal: Yes: WNL Extremities: Yes: WNL Edema: Yes Peripheral Pulses WNL: Yes Integumentary: Yes: WNL Neurological: Yes: WNL, Alert, Oriented ...Motor Strength: WNL Psychiatric: Yes: WNL, Alert, Oriented Labs: CBC, BMP 03/19/19 05:50 03/19/19 05:50 Imaging - Results Chest X-ray: Report Reviewed, Image Reviewed Cat Scan: Report Reviewed, Image Reviewed Problem List - Problems (1) Bilateral pleural effusion Code(s): J90 - PLEURAL EFFUSION, NOT ELSEWHERE CLASSIFIED (2) Obesity Code(s): E66.9 - OBESITY, UNSPECIFIED (3) Acute respiratory failure with hypoxia Code(s): J96.01 - ACUTE RESPIRATORY FAILURE WITH HYPOXIA (4) Hypoxia Code(s): R09.02 - HYPOXEMIA (5) Pneumonia Code(s): J18.9 - PNEUMONIA, UNSPECIFIED ORGANISM (6) Congestive heart failure Code(s): I50.9 - HEART FAILURE, UNSPECIFIED (7) Hypertensive cardiovascular disease Code(s): I11.9 - HYPERTENSIVE HEART DISEASE WITHOUT HEART FAILURE Qualifiers: Heart failure presence: with heart failure Qualified Code(s): I11.0 - Hypertensive heart disease with heart failure (8) Atelectasis of both lungs Code(s): J98.11 - ATELECTASIS Assessment/Plan ABX per ID Thoracentesis has been arranged: will follow pleural analysis and cultures O2 as needed to maintain saturation Agree with Lasix BID VTE prophylaxis Will need to check Pre and Post ambulation saturation prior to going home Outpatient PFTs once improved/stable Will follow Thank you. Dr Miller
[2019-03-19 15:32] LABS: BF WBC & OTHER NUCLEATED CELLS 312 /mm3
[2019-03-19 15:51] LABS: BODY FLUID MACROPHAGES 34 %; BODY FLUID MESOTHELIAL 16 %; BODY FLUID MONOCYTE 14 %
[2019-03-20] MEDS ORDERED: DEXTROSE 5%-WATER - 50 ML IVPB ONE ×2 (01:15→09:06)
[2019-03-20] MEDS ORDERED: PIPERACILLIN/TAZOBACTAM 3.375 GM VIAL IVPB ONE ×2 (01:15→09:06)
[2019-03-20] MEDS: PIPERACILLIN/TAZOB 3.375 GM 3.375 GM in DEXTROSE 5%-WATER - 50 ML IVPB SCH ×2 (01:55→10:14)
[2019-03-20] MEDS: LEVOTHYROXINE NA 25 MCG TABLET (FP) PO SCH (06:08)
[2019-03-20] MEDS: FUROSEMIDE 40 MG TABLET (FP) PO SCH ×2 (06:08→13:00)
[2019-03-20 08:08] LABS: BASO % 0.6 % (0-2.0); EOS % 3.2 % (0-4.5); HEMATOCRIT 31.7 % (32.4-45.2); LYMPH % 14.5 % (8-40); MCHC 34.6 g/dl (32.0-36.0); MEAN CELL VOLUME 92.3 fl (80-96); MEAN PLT VOLUME 7.9 fl (7.5-11.1); MONO % 8.6 % (3.8-10.2); NEUT % 73.1 % (42.8-82.8); PLATELET COUNT 320 K/MM3 (134-434); RBC 3.44 M/mm3 (3.60-5.2); WHITE BLOOD COUNT 8.2 K/mm3 (4.0-10.0)
[2019-03-20 08:52] LABS: ALBUMIN 2.5 g/dl (3.4-5.0); BLOOD UREA NITROGEN 14.6 mg/dL (7-18); CREATININE 1.1 mg/dL (0.55-1.3); POTASSIUM 3.6 mmol/L (3.5-5.1); TOT PROT 5.6 g/dl (6.4-8.2)
[2019-03-20] MEDS: LISINOPRIL 20 MG TABLET (FP) PO SCH (08:54)
[2019-03-20] MEDS: hydrALAZINE HCL 50 MG TABLET (FP) PO SCH ×2 (10:06→21:15)
[2019-03-20] MEDS: metoPROLOL SUCCINATE 25 MG TAB.SR.24H (FP) PO SCH (10:12)
[2019-03-20] MEDS: ALPRAZolam 0.25 MG TABLET PO SCH ×2 (10:13→21:15)
[2019-03-20] MEDS: AMIODARONE HCL 200 MG TABLET (FP) PO SCH (10:13)
[2019-03-20] MEDS: ENOXAPARIN NA (PORCINE) 40 MG/0.4 ML DISP.SYRIN SQ SCH (10:13)
[2019-03-20] MEDS: INSULIN (NOVOLOG MIX 70/30) 100 UNITS/ML MDV SQ SCH (10:14)
[2019-03-20] MEDS: NYSTATIN 500,000 UNITS/5 ML SUSPENSION PO SCH ×4 (10:16→21:15)
[2019-03-20] MEDS: BACITRACIN/POLYMYXIN B SULFATE 15 GM TUBE TP SCH ×2 (10:24→21:15)
--- NOTE | 2019-03-20 11:20 | PN ---
Progress Note (short form) - Note Progress Note: PULMONARY AMBULATING IN HALLWAY WITH PT AND DAUGHTER VSS Constitutional: Yes: No Distress Eyes: Yes: Conjunctiva Clear, EOM Intact HENT: Yes: Atraumatic, Tonsillar Exudate Neck: Yes: Supple, Trachea Midline Cardiovascular: Yes: Regular Rate and Rhythm Respiratory: Yes: Cough, Diminished, On Nasal O2, Rales, Rhonchi. No: Accessory Muscle Use, SOB, SOB on Exertion, Stridor, Tachypnea, Wheezes ...Inspection: Yes: WNL ...Clubbing: No Gastrointestinal: Yes: Normal Bowel Sounds, Soft, Abdomen, Obese Renal/: Yes: WNL Musculoskeletal: Yes: WNL Extremities: Yes: WNL Edema: Yes Peripheral Pulses WNL: Yes Integumentary: Yes: WNL Neurological: Yes: WNL, Alert, Oriented ...Motor Strength: WNL Psychiatric: Yes: WNL, Alert, Oriented Labs: NOTED CBC Imaging - Results Chest X-ray: Report Reviewed, Image Reviewed Cat Scan: Report Reviewed, Image Reviewed Problem List - Problems (1) Bilateral pleural effusion Code(s): J90 - PLEURAL EFFUSION, NOT ELSEWHERE CLASSIFIED (2) Obesity Code(s): E66.9 - OBESITY, UNSPECIFIED (3) Acute respiratory failure with hypoxia Code(s): J96.01 - ACUTE RESPIRATORY FAILURE WITH HYPOXIA (4) Hypoxia Code(s): R09.02 - HYPOXEMIA (5) Pneumonia Code(s): J18.9 - PNEUMONIA, UNSPECIFIED ORGANISM (6) Congestive heart failure Code(s): I50.9 - HEART FAILURE, UNSPECIFIED (7) Hypertensive cardiovascular disease Code(s): I11.9 - HYPERTENSIVE HEART DISEASE WITHOUT HEART FAILURE Qualifiers: Heart failure presence: with heart failure Qualified Code(s): I11.0 - Hypertensive heart disease with heart failure (8) Atelectasis of both lungs Code(s): J98.11 - ATELECTASIS Assessment/Plan ABX per ID Awaiting complete results of tap O2 as needed to maintain saturation Agree with Lasix BID VTE prophylaxis Will need to check Pre and Post ambulation saturation prior to going home Outpatient PFTs once improved/stable Will follow KEON ORDONEZ MD
--- NOTE | 2019-03-20 12:17 | PN ---
Progress Note, Physician Chief Complaint: Feeling much better, more alert, receptive, attentive, and cooperative. History of Present Illness: This 83 yr old w/f with history of cardiomegaly, HCVD with CHF, type 2 diabetes , hypothyroidism, chronic cerebellar stroke admitted via ER with acute severe bilateral extensive multi-lobar pneumonia, acute toxic metabolic encephalopathy , and severe hypoxemia. - Current Medication List Current Medications: Active Medications Alprazolam (Xanax -) 0.25 mg PO BID [facility] Last Admin: 03/20/19 10:13 Dose: 0.25 mg Amiodarone HCl (Cordarone -) 200 mg PO DAILY [facility] Last Admin: 03/20/19 10:13 Dose: 200 mg Bacitracin/Polymyxin B Sulfate (Polysporin Ointment -) 1 applic TP BID [facility] Last Admin: 03/20/19 10:24 Dose: 1 applic Enoxaparin Sodium (Lovenox -) 40 mg SQ DAILY [facility] Last Admin: 03/20/19 10:13 Dose: 40 mg Furosemide (Lasix -) 80 mg PO BID@0600,1400 [facility] Last Admin: 03/20/19 06:08 Dose: 80 mg Hydralazine HCl (Apresoline -) 50 mg PO Q12H [facility] Last Admin: 03/20/19 10:06 Dose: 50 mg Piperacillin Sod/Tazobactam (Sod 3.375 gm/ Dextrose) 50 mls @ 100 mls/hr IVPB Q8H-IV [facility]; Protocol Last Admin: 03/20/19 10:14 Dose: 100 mls/hr Insulin Aspart (Novolog Mix 70/30 Vial) 20 units SQ Q24H [facility] Last Admin: 03/20/19 10:14 Dose: 20 units Levothyroxine Sodium (Synthroid -) 25 mcg PO DAILY@0700 [facility] Last Admin: 03/20/19 06:08 Dose: 25 mcg Lisinopril (Prinivil) 40 mg PO Q24H [facility] Last Admin: 03/20/19 08:54 Dose: 40 mg Metoprolol Succinate (Toprol Xl -) 12.5 mg PO DAILY [facility] Last Admin: 03/20/19 10:12 Dose: 12.5 mg Nystatin (Nystatin Oral Suspension -) 500,000 units PO QID [facility] Last Admin: 03/20/19 10:16 Dose: 500,000 units - Objective Vital Signs: Vital Signs Temperature 97.7 F 03/20/19 08:57 Pulse Rate 67 03/20/19 08:57 Respiratory Rate 18 03/20/19 08:57 Blood Pressure 145/65 03/20/19 08:57 O2 Sat by Pulse Oximetry (%) 98 03/19/19 21:00 Constitutional: Yes: Well Nourished, Calm, Mild Distress Eyes: Yes: Conjunctiva Clear, EOM Intact HENT: Yes: Atraumatic, Normocephalic, Thrush Neck: Yes: Supple, Trachea Midline Cardiovascular: Yes: Regular Rate and Rhythm Respiratory: Yes: Regular, CTA Bilaterally, Dullness, On Nasal O2 Gastrointestinal: Yes: Normal Bowel Sounds, Soft ...Rectal Exam: Yes: Deferred Genitourinary: Yes: WNL Breast(s): Yes: WNL Musculoskeletal: Yes: Muscle Weakness Extremities: Yes: Cool Edema: LLE: 2+, RLE: 2+ Peripheral Pulses WNL: Yes Peripheral Pulses: Left Radial: 3+, Right Radial: 3+, Left Doralis Pedis: 2+, Right Dorsalis Pedis: 2+, Left Femoral: 3+, Right Femoral: 3+ Integumentary: Yes: Pressure Ulcer (behind right ear) Wound/Incision: Yes: Open to air Neurological: Yes: Alert, Oriented, Pre-Existing Deficit, Unsteady Gait, Weakness ...Motor Strength: WNL Psychiatric: Yes: Alert, Oriented Labs: CBC, BMP 03/20/19 06:00 03/20/19 06:00 INR, PTT INR 1.88 (0.83-1.09) H 03/12/19 19:00 - ....Imaging Cat Scan: Report Reviewed Other: Report Reviewed (Lab data reviewed. Pulmonary note read and appreciated. ) Problem List - Problems (1) Pneumonia Assessment/Plan: IV Zosyn Code(s): J18.9 - PNEUMONIA, UNSPECIFIED ORGANISM (2) Hypoxia Assessment/Plan: Oxyge 2L/min via nasal cannula Code(s): R09.02 - HYPOXEMIA (3) Generalized anxiety disorder Assessment/Plan: oral Alprazolam Code(s): F41.1 - GENERALIZED ANXIETY DISORDER (4) Oral candidiasis Assessment/Plan: Oral Mycostatin suspension Code(s): B37.0 - CANDIDAL STOMATITIS (5) Pleural effusion, right Assessment/Plan: status post thoracentesis Code(s): J90 - PLEURAL EFFUSION, NOT ELSEWHERE CLASSIFIED Assessment/Plan Plan: acute severe and extensive bilateral multi-lobar pneumonia, acute toxic metabolic encephalopathy improved, severe hypoxemia improved, hypokalemia corrected, resolving hyperbilirubinemia, resolving transaminasemia; IV Zosyn, oxygen 2L/min via nasal cannula, VTE prophylaxis, physical therapy, discussed clinical condition of the patient with her daughter Gracie.
[2019-03-20 14:09] LABS: BODY FLUID ALBUMIN 0.9 g/dL (Not Estab.)
--- NOTE | 2019-03-20 16:40 | PN ---
Progress Note, Physician History of Present Illness: AWAKE, ALERT SEATED IN BED NO COMPLAINTS BREATHING NON LABORED AFEBRILE WBC IMPROVED BC (-) LEGIONELLA AG (-) - Current Medication List Current Medications: Active Medications Alprazolam (Xanax -) 0.25 mg PO BID [facility] Last Admin: 03/20/19 10:13 Dose: 0.25 mg Amiodarone HCl (Cordarone -) 200 mg PO DAILY [facility] Last Admin: 03/20/19 10:13 Dose: 200 mg Bacitracin/Polymyxin B Sulfate (Polysporin Ointment -) 1 applic TP BID [facility] Last Admin: 03/20/19 10:24 Dose: 1 applic Enoxaparin Sodium (Lovenox -) 40 mg SQ DAILY [facility] Last Admin: 03/20/19 10:13 Dose: 40 mg Furosemide (Lasix -) 80 mg PO BID@0600,1400 [facility] Last Admin: 03/20/19 13:00 Dose: 80 mg Hydralazine HCl (Apresoline -) 50 mg PO Q12H [facility] Last Admin: 03/20/19 10:06 Dose: 50 mg Piperacillin Sod/Tazobactam (Sod 3.375 gm/ Dextrose) 50 mls @ 100 mls/hr IVPB Q8H-IV [facility]; Protocol Last Admin: 03/20/19 10:14 Dose: 100 mls/hr Insulin Aspart (Novolog Mix 70/30 Vial) 20 units SQ Q24H [facility] Last Admin: 03/20/19 10:14 Dose: 20 units Levothyroxine Sodium (Synthroid -) 25 mcg PO DAILY@0700 [facility] Last Admin: 03/20/19 06:08 Dose: 25 mcg Lisinopril (Prinivil) 40 mg PO Q24H [facility] Last Admin: 03/20/19 08:54 Dose: 40 mg Metoprolol Succinate (Toprol Xl -) 12.5 mg PO DAILY [facility] Last Admin: 03/20/19 10:12 Dose: 12.5 mg Nystatin (Nystatin Oral Suspension -) 500,000 units PO QID [facility] Last Admin: 03/20/19 13:00 Dose: 500,000 units - Objective Vital Signs: Vital Signs Temperature 98.0 F 03/20/19 13:57 Pulse Rate 64 03/20/19 13:57 Respiratory Rate 17 03/20/19 13:57 Blood Pressure 144/63 03/20/19 13:57 O2 Sat by Pulse Oximetry (%) 97 03/20/19 09:00 Constitutional: Yes: No Distress Cardiovascular: Yes: Regular Rate and Rhythm, S1, S2 Respiratory: Yes: CTA Bilaterally Gastrointestinal: Yes: Normal Bowel Sounds, Soft Edema: No Labs: CBC, BMP 03/20/19 06:00 03/20/19 06:00 INR, PTT INR 1.88 (0.83-1.09) H 03/12/19 19:00 Assessment/Plan MULTILOBAR PNEUMONIA TOXIC METABOLIC ENCEPHALOPATHY IMPROVED LEUKOCYTOSIS IMPROVED AZOTEMIA IMPROVED THRUSH IMPROVED ELEVATED LFTS SUBSTITUTE AUGMENTIN 500MG PO BID X 3D
[2019-03-20] MEDS: AMOX TR/POT CLAV 500MG/125MG TABLETS (FP) PO SCH (17:57)
[2019-03-20] MEDS ORDERED: PT OWN MED DRAWER 7, Y5N ONE (21:29)
[2019-03-21] MEDS: FUROSEMIDE 40 MG TABLET (FP) PO SCH ×2 (05:54→13:53)
[2019-03-21 05:56] LABS: BASO % 0.8 % (0-2.0); EOS % 3.7 % (0-4.5); HEMATOCRIT 33.8 % (32.4-45.2); HEMOGLOBIN 11.4 GM/dL (10.7-15.3); LYMPH % 16.4 % (8-40); MCHC 33.8 g/dl (32.0-36.0); MEAN CELL VOLUME 91.9 fl (80-96); MEAN PLT VOLUME 7.6 fl (7.5-11.1); MONO % 10.7 % (3.8-10.2); NEUT % 68.4 % (42.8-82.8); PLATELET COUNT 327 K/MM3 (134-434); RBC 3.68 M/mm3 (3.60-5.2); RDW 15.1 % (11.6-15.6); WHITE BLOOD COUNT 6.9 K/mm3 (4.0-10.0)
[2019-03-21] MEDS: LEVOTHYROXINE NA 25 MCG TABLET (FP) PO SCH (06:00)
[2019-03-21 06:25] LABS: ALBUMIN 2.7 g/dl (3.4-5.0); BLOOD UREA NITROGEN 14.6 mg/dL (7-18); CREATININE 1.1 mg/dL (0.55-1.3); POTASSIUM 3.4 mmol/L (3.5-5.1); TOT PROT 5.8 g/dl (6.4-8.2)
[2019-03-21] MEDS ORDERED: PT OWN MED DRAWER 7, Y5N ONE ×2 (08:11→16:30)
[2019-03-21] MEDS: LISINOPRIL 20 MG TABLET (FP) PO SCH (08:24)
[2019-03-21] MEDS: AMOX TR/POT CLAV 500MG/125MG TABLETS (FP) PO SCH ×2 (08:24→17:18)
[2019-03-21] MEDS: ENOXAPARIN NA (PORCINE) 40 MG/0.4 ML DISP.SYRIN SQ SCH (09:23)
[2019-03-21] MEDS: hydrALAZINE HCL 50 MG TABLET (FP) PO SCH ×2 (09:24→22:28)
[2019-03-21] MEDS: AMIODARONE HCL 200 MG TABLET (FP) PO SCH (09:24)
[2019-03-21] MEDS: NYSTATIN 500,000 UNITS/5 ML SUSPENSION PO SCH ×4 (09:24→22:27)
[2019-03-21] MEDS: metoPROLOL SUCCINATE 25 MG TAB.SR.24H (FP) PO SCH (09:30)
[2019-03-21] MEDS: INSULIN (NOVOLOG MIX 70/30) 100 UNITS/ML MDV SQ SCH (10:08)
[2019-03-21] MEDS: ALPRAZolam 0.25 MG TABLET PO SCH ×2 (10:09→22:28)
[2019-03-21] MEDS: BACITRACIN/POLYMYXIN B SULFATE 15 GM TUBE TP SCH ×2 (10:11→22:27)
--- NOTE | 2019-03-21 12:11 | PN ---
Progress Note (short form) - Note Progress Note: PULMONARY AMBULATING IN HALLWAY WITH PT AND DAUGHTER VSS Constitutional: Yes: No Distress Eyes: Yes: Conjunctiva Clear, EOM Intact HENT: Yes: Atraumatic, Tonsillar Exudate Neck: Yes: Supple, Trachea Midline Cardiovascular: Yes: Regular Rate and Rhythm Respiratory: Yes: Cough, Diminished, On Nasal O2, Rales, Rhonchi. No: Accessory Muscle Use, SOB, SOB on Exertion, Stridor, Tachypnea, Wheezes ...Inspection: Yes: WNL ...Clubbing: No Gastrointestinal: Yes: Normal Bowel Sounds, Soft, Abdomen, Obese Renal/: Yes: WNL Musculoskeletal: Yes: WNL Extremities: Yes: WNL Edema: Yes Peripheral Pulses WNL: Yes Integumentary: Yes: WNL Neurological: Yes: WNL, Alert, Oriented ...Motor Strength: WNL Psychiatric: Yes: WNL, Alert, Oriented Labs: NOTED CBC Imaging - Results Chest X-ray: Report Reviewed, Image Reviewed Cat Scan: Report Reviewed, Image Reviewed Problem List - Problems (1) Bilateral pleural effusion Code(s): J90 - PLEURAL EFFUSION, NOT ELSEWHERE CLASSIFIED (2) Obesity Code(s): E66.9 - OBESITY, UNSPECIFIED (3) Acute respiratory failure with hypoxia Code(s): J96.01 - ACUTE RESPIRATORY FAILURE WITH HYPOXIA (4) Hypoxia Code(s): R09.02 - HYPOXEMIA (5) Pneumonia Code(s): J18.9 - PNEUMONIA, UNSPECIFIED ORGANISM (6) Congestive heart failure Code(s): I50.9 - HEART FAILURE, UNSPECIFIED (7) Hypertensive cardiovascular disease Code(s): I11.9 - HYPERTENSIVE HEART DISEASE WITHOUT HEART FAILURE Qualifiers: Heart failure presence: with heart failure Qualified Code(s): I11.0 - Hypertensive heart disease with heart failure (8) Atelectasis of both lungs Code(s): J98.11 - ATELECTASIS Assessment/Plan ABX CHANGED TO ORAL per ID Awaiting complete results of tap O2 as needed to maintain saturation VTE prophylaxis Will need to check Pre and Post ambulation saturation prior to going home Outpatient PFTs Will follow KEON ORDONEZ MD
--- NOTE | 2019-03-21 13:02 | DS ---
Physical Examination Vital Signs: Vital Signs Temperature 97.9 F 03/21/19 09:00 Pulse Rate 68 03/21/19 09:00 Respiratory Rate 18 03/21/19 09:00 Blood Pressure 150/67 03/21/19 09:00 O2 Sat by Pulse Oximetry (%) 95 03/21/19 09:00 Constitutional: Yes: Well Nourished, No Distress Eyes: Yes: Conjunctiva Clear, EOM Intact HENT: Yes: Atraumatic, Normocephalic Neck: Yes: Supple, Trachea Midline Cardiovascular: Yes: Regular Rate and Rhythm Respiratory: Yes: Regular, CTA Bilaterally, Diminished, Dullness, On Nasal O2, Rhonchi Gastrointestinal: Yes: Normal Bowel Sounds, Soft ...Rectal Exam: Yes: Deferred Renal/: Yes: WNL Breast(s): Yes: WNL Musculoskeletal: Yes: WNL Extremities: Yes: Cool Edema: Yes Edema: LLE: 2+, RLE: 2+ Peripheral Pulses WNL: Yes Peripheral Pulses: Left Radial: 3+, Right Radial: 3+, Left Doralis Pedis: 2+, Right Dorsalis Pedis: 2+, Left Femoral: 3+, Right Femoral: 3+ Integumentary: Yes: Pressure Ulcer (behind right ear) Wound/Incision: Yes: Open to air Neurological: Yes: Alert, Oriented, Pre-Existing Deficit, Unsteady Gait ...Motor Strength: WNL Psychiatric: Yes: Alert, Oriented Labs: CBC, BMP 03/21/19 05:31 03/21/19 05:31 Discharge Summary Problems reviewed: Yes Reason For Visit: PNEUMONIA Current Active Problems Acute respiratory failure with hypoxia (Acute) Atelectasis of both lungs (Acute) Bilateral pleural effusion (Acute) Hypoxia (Acute) Obesity (Acute) Oral candidiasis (Acute) Pleural effusion, right (Acute) Pneumonia (Acute) Condition: Improved - Instructions Disposition: HOME - Home Medications Comprehensive Discharge Medication List: Ambulatory Orders Alprazolam [Xanax] 0.25 mg PO BID 03/12/19 Amiodarone HCl 200 mg PO DAILY 03/12/19 Apixaban [Eliquis] 2.5 mg PO BID 03/12/19 Atorvastatin Ca [Lipitor] 10 mg PO HS 03/12/19 Furosemide [Lasix] 80 mg PO BID 03/12/19 Hydralazine HCl 50 mg PO BID 03/12/19 Insulin (Novolog 70/30) [Novolog Mix 70/30 Vial] 20 units SQ DAILY 03/12/19 Levothyroxine [Synthroid -] 25 mcg PO DAILY 03/12/19 Lisinopril [Zestril] 40 mg PO DAILY 03/12/19 Metoprolol Succinate 12.5 mg PO DAILY 03/12/19 Augmentin 500mg po q12h for 10 days. Nystatin oral suspension
--- NOTE | 2019-03-21 13:12 | PN ---
Progress Note, Physician Chief Complaint: Feeling much better, appetite improved, more alert, coherent, and attentive. - Current Medication List Current Medications: Active Medications Alprazolam (Xanax -) 0.25 mg PO BID [facility] Last Admin: 03/21/19 10:09 Dose: 0.25 mg Amiodarone HCl (Cordarone -) 200 mg PO DAILY [facility] Last Admin: 03/21/19 09:24 Dose: 200 mg Amoxicillin/Clavulanate Potassium (Augmentin - 500mg Tablet) 1 tab PO BID@0800, 1730 [facility] Last Admin: 03/21/19 08:24 Dose: 1 tab Bacitracin/Polymyxin B Sulfate (Polysporin Ointment -) 1 applic TP BID [facility] Last Admin: 03/21/19 10:11 Dose: 1 applic Enoxaparin Sodium (Lovenox -) 40 mg SQ DAILY [facility] Last Admin: 03/21/19 09:23 Dose: 40 mg Furosemide (Lasix -) 80 mg PO BID@0600,1400 [facility] Last Admin: 03/21/19 05:54 Dose: 80 mg Hydralazine HCl (Apresoline -) 50 mg PO Q12H [facility] Last Admin: 03/21/19 09:24 Dose: 50 mg Insulin Aspart (Novolog Mix 70/30 Vial) 20 units SQ Q24H [facility] Last Admin: 03/21/19 10:08 Dose: 20 units Levothyroxine Sodium (Synthroid -) 25 mcg PO DAILY@0700 [facility] Last Admin: 03/21/19 06:00 Dose: 25 mcg Lisinopril (Prinivil) 40 mg PO Q24H [facility] Last Admin: 03/21/19 08:24 Dose: 40 mg Metoprolol Succinate (Toprol Xl -) 12.5 mg PO DAILY [facility] Last Admin: 03/21/19 09:30 Dose: 12.5 mg Nystatin (Nystatin Oral Suspension -) 500,000 units PO QID [facility] Last Admin: 03/21/19 09:24 Dose: 500,000 units - Objective Vital Signs: Vital Signs Temperature 97.9 F 03/21/19 09:00 Pulse Rate 68 03/21/19 09:00 Respiratory Rate 18 03/21/19 09:00 Blood Pressure 150/67 03/21/19 09:00 O2 Sat by Pulse Oximetry (%) 95 03/21/19 09:00 Constitutional: Yes: Well Nourished, No Distress, Calm Eyes: Yes: Conjunctiva Clear, EOM Intact HENT: Yes: Atraumatic, Normocephalic Neck: Yes: Supple, Trachea Midline Cardiovascular: Yes: Regular Rate and Rhythm Respiratory: Yes: Regular, CTA Bilaterally, Diminished, Dullness, On Nasal O2, Rhonchi Gastrointestinal: Yes: Normal Bowel Sounds, Soft ...Rectal Exam: Yes: Deferred Genitourinary: Yes: WNL Breast(s): Yes: WNL Musculoskeletal: Yes: Muscle Weakness Extremities: Yes: WNL, Cool Edema: LLE: 2+, RLE: 2+ Peripheral Pulses WNL: Yes Peripheral Pulses: Left Radial: 3+, Right Radial: 3+, Left Doralis Pedis: 2+, Right Dorsalis Pedis: 2+, Left Femoral: 3+, Right Femoral: 3+ Integumentary: Yes: Pressure Ulcer (behind right ear) Wound/Incision: Yes: Open to air Neurological: Yes: Alert, Oriented, Pre-Existing Deficit, Unsteady Gait, Weakness ...Motor Strength: WNL Psychiatric: Yes: Alert, Oriented Labs: CBC, BMP 03/21/19 05:31 03/21/19 05:31 INR, PTT INR 1.88 (0.83-1.09) H 03/12/19 19:00 - ....Imaging Other: Report Reviewed (Lab data reviewed. Pulmonary note read and appreciated. ) Problem List - Problems (1) Pneumonia Assessment/Plan: Oral Augmentin as per ID. Code(s): J18.9 - PNEUMONIA, UNSPECIFIED ORGANISM (2) Hypoxia Assessment/Plan: Oxygen 2L/min via nasal cannula. Code(s): R09.02 - HYPOXEMIA (3) Generalized anxiety disorder Assessment/Plan: Oral Alprazolam. Code(s): F41.1 - GENERALIZED ANXIETY DISORDER (4) Oral candidiasis Assessment/Plan: Nystatin oral suspension. Code(s): B37.0 - CANDIDAL STOMATITIS (5) Pleural effusion, right Assessment/Plan: Status post right thoracentesis. Code(s): J90 - PLEURAL EFFUSION, NOT ELSEWHERE CLASSIFIED Assessment/Plan Plan: Resolving bilateral multi-lobar pneumonia, toxic metabolic encephalopathy improved, hypoxemia improved, hypokalemia, resolving hyperbilirubinemia and transaminasemia; Oral Augmentin, oral nystatin suspension, oxygen 2L/min via nasal cannula, discharge planning, discussed clinical condition of the patient with her daughter Gracie.
[2019-03-22] MEDS: LEVOTHYROXINE NA 25 MCG TABLET (FP) PO SCH (06:29)
[2019-03-22] MEDS: FUROSEMIDE 40 MG TABLET (FP) PO SCH ×2 (06:29→14:52)
[2019-03-22] MEDS ORDERED: PT OWN MED DRAWER 7, Y5N ONE ×3 (08:40→21:03)
[2019-03-22] MEDS: AMOX TR/POT CLAV 500MG/125MG TABLETS (FP) PO SCH ×2 (08:45→17:41)
[2019-03-22] MEDS: LISINOPRIL 20 MG TABLET (FP) PO SCH (08:45)
[2019-03-22] MEDS: hydrALAZINE HCL 50 MG TABLET (FP) PO SCH ×2 (08:45→21:11)
[2019-03-22] MEDS: metoPROLOL SUCCINATE 25 MG TAB.SR.24H (FP) PO SCH (09:43)
[2019-03-22] MEDS: ALPRAZolam 0.25 MG TABLET PO SCH ×2 (09:43→21:11)
[2019-03-22] MEDS: AMIODARONE HCL 200 MG TABLET (FP) PO SCH (09:43)
[2019-03-22] MEDS: BACITRACIN/POLYMYXIN B SULFATE 15 GM TUBE TP SCH ×2 (09:44→21:11)
[2019-03-22] MEDS: INSULIN (NOVOLOG MIX 70/30) 100 UNITS/ML MDV SQ SCH (09:45)
[2019-03-22] MEDS: NYSTATIN 500,000 UNITS/5 ML SUSPENSION PO SCH ×4 (09:45→21:11)
[2019-03-22] MEDS: ENOXAPARIN NA (PORCINE) 40 MG/0.4 ML DISP.SYRIN SQ SCH (09:46)
--- NOTE | 2019-03-22 11:41 | PN ---
Progress Note (short form) - Note Progress Note: PULMONARY OOB TO CHAIR AWAITING DELIVERY OF HOME O2 VSS Constitutional: Yes: No Distress Eyes: Yes: Conjunctiva Clear, EOM Intact HENT: Yes: Atraumatic, Tonsillar Exudate Neck: Yes: Supple, Trachea Midline Cardiovascular: Yes: Regular Rate and Rhythm Respiratory: Yes: Cough, Diminished, On Nasal O2, Rales, Rhonchi. No: Accessory Muscle Use, SOB, SOB on Exertion, Stridor, Tachypnea, Wheezes ...Inspection: Yes: WNL ...Clubbing: No Gastrointestinal: Yes: Normal Bowel Sounds, Soft, Abdomen, Obese Renal/: Yes: WNL Musculoskeletal: Yes: WNL Extremities: Yes: WNL Edema: Yes Peripheral Pulses WNL: Yes Integumentary: Yes: WNL Neurological: Yes: WNL, Alert, Oriented ...Motor Strength: WNL Psychiatric: Yes: WNL, Alert, Oriented Labs: NOTED PLEURAL FLUID APPEARS TRANSUDATIVE Imaging - Results Chest X-ray: Report Reviewed, Image Reviewed Cat Scan: Report Reviewed, Image Reviewed Problem List - Problems (1) Bilateral pleural effusion Code(s): J90 - PLEURAL EFFUSION, NOT ELSEWHERE CLASSIFIED (2) Obesity Code(s): E66.9 - OBESITY, UNSPECIFIED (3) Acute respiratory failure with hypoxia Code(s): J96.01 - ACUTE RESPIRATORY FAILURE WITH HYPOXIA (4) Hypoxia Code(s): R09.02 - HYPOXEMIA (5) Pneumonia Code(s): J18.9 - PNEUMONIA, UNSPECIFIED ORGANISM (6) Congestive heart failure Code(s): I50.9 - HEART FAILURE, UNSPECIFIED (7) Hypertensive cardiovascular disease Code(s): I11.9 - HYPERTENSIVE HEART DISEASE WITHOUT HEART FAILURE Qualifiers: Heart failure presence: with heart failure Qualified Code(s): I11.0 - Hypertensive heart disease with heart failure (8) Atelectasis of both lungs Code(s): J98.11 - ATELECTASIS Assessment/Plan ABX CHANGED TO ORAL per ID O2 as needed to maintain saturation VTE prophylaxis Outpatient PFTs KEON ORDONEZ MD
--- NOTE | 2019-03-22 13:56 | PN ---
Progress Note, Physician Chief Complaint: Feeling much better, appetite improved, feeling more calm. History of Present Illness: This 83 yr old w/f with history of HCVD with CHF, type 2 diabetes, hyperlipidemia, chronic cerebellar stroke admitted via ER with acute severe bilateral multi-lobar pneumonia, acute toxic metabolic encephalopathy, and severe hypoxemia. - Current Medication List Current Medications: Active Medications Alprazolam (Xanax -) 0.25 mg PO BID [facility] Last Admin: 03/22/19 09:43 Dose: 0.25 mg Amiodarone HCl (Cordarone -) 200 mg PO DAILY [facility] Last Admin: 03/22/19 09:43 Dose: 200 mg Amoxicillin/Clavulanate Potassium (Augmentin - 500mg Tablet) 1 tab PO BID@0800, 1730 [facility] Last Admin: 03/22/19 08:45 Dose: 1 tab Bacitracin/Polymyxin B Sulfate (Polysporin Ointment -) 1 applic TP BID [facility] Last Admin: 03/22/19 09:44 Dose: 1 applic Enoxaparin Sodium (Lovenox -) 40 mg SQ DAILY [facility] Last Admin: 03/22/19 09:46 Dose: 40 mg Furosemide (Lasix -) 80 mg PO BID@0600,1400 [facility] Last Admin: 03/22/19 06:29 Dose: 80 mg Hydralazine HCl (Apresoline -) 50 mg PO Q12H [facility] Last Admin: 03/22/19 08:45 Dose: 50 mg Insulin Aspart (Novolog Mix 70/30 Vial) 20 units SQ Q24H [facility] Last Admin: 03/22/19 09:45 Dose: 20 units Levothyroxine Sodium (Synthroid -) 25 mcg PO DAILY@0700 [facility] Last Admin: 03/22/19 06:29 Dose: 25 mcg Lisinopril (Prinivil) 40 mg PO Q24H [facility] Last Admin: 03/22/19 08:45 Dose: 40 mg Metoprolol Succinate (Toprol Xl -) 12.5 mg PO DAILY [facility] Last Admin: 03/22/19 09:43 Dose: 12.5 mg Nystatin (Nystatin Oral Suspension -) 500,000 units PO QID [facility] Last Admin: 03/22/19 09:45 Dose: 500,000 units Potassium Chloride (K-Dur -) 20 meq PO DAILY [facility] - Objective Vital Signs: Vital Signs Temperature 98 F 03/22/19 08:47 Pulse Rate 62 03/22/19 09:49 Respiratory Rate 20 03/22/19 08:47 Blood Pressure 141/59 L 03/22/19 09:49 O2 Sat by Pulse Oximetry (%) 98 03/22/19 08:49 Constitutional: Yes: Well Nourished, No Distress, Calm Eyes: Yes: Conjunctiva Clear, EOM Intact HENT: Yes: Atraumatic, Normocephalic, Other (healing pressure ulcer behind right ear) Neck: Yes: Supple, Trachea Midline Cardiovascular: Yes: Regular Rate and Rhythm Respiratory: Yes: Regular, CTA Bilaterally, Diminished, Dullness, On Nasal O2, Rales Gastrointestinal: Yes: Normal Bowel Sounds, Soft ...Rectal Exam: Yes: Deferred Genitourinary: Yes: WNL Breast(s): Yes: WNL Musculoskeletal: Yes: Muscle Weakness Extremities: Yes: Cool Edema: LLE: 2+, RLE: 2+ Peripheral Pulses WNL: Yes Peripheral Pulses: Left Radial: 3+, Right Radial: 3+, Left Doralis Pedis: 2+, Right Dorsalis Pedis: 2+, Left Femoral: 3+, Right Femoral: 3+ Integumentary: Yes: Pressure Ulcer (behind right ear) Wound/Incision: Yes: Open to air Neurological: Yes: Alert, Oriented, Pre-Existing Deficit, Unsteady Gait ...Motor Strength: WNL Psychiatric: Yes: Alert, Oriented Labs: CBC, BMP 03/21/19 05:31 03/21/19 05:31 INR, PTT INR 1.88 (0.83-1.09) H 03/12/19 19:00 Problem List - Problems (1) Pneumonia Assessment/Plan: Oral Augmentin Code(s): J18.9 - PNEUMONIA, UNSPECIFIED ORGANISM (2) Hypoxia Assessment/Plan: Oxygen via nasal cannula Code(s): R09.02 - HYPOXEMIA (3) Generalized anxiety disorder Assessment/Plan: Oral Alprazolam Code(s): F41.1 - GENERALIZED ANXIETY DISORDER (4) Oral candidiasis Assessment/Plan: Oral Nystatin suspension Code(s): B37.0 - CANDIDAL STOMATITIS (5) Pleural effusion, right Assessment/Plan: status post right thoracentesis Code(s): J90 - PLEURAL EFFUSION, NOT ELSEWHERE CLASSIFIED Assessment/Plan Plan: Resolving bilateral multi-lobar pneumonia, toxic metabolic encephalopathy improved, hypokalemia improved, hypoxemia improved; Oral Augmentin, oral Nystatin suspension, oral potassium chloride, discharge planning.
[2019-03-22] MEDS: POTASSIUM CHLORIDE TABS 20 MEQ TABLET.ER (FP) PO SCH (14:52)
[2019-03-23] MEDS: FUROSEMIDE 40 MG TABLET (FP) PO SCH ×2 (06:14→14:08)
[2019-03-23] MEDS: LEVOTHYROXINE NA 25 MCG TABLET (FP) PO SCH (06:14)
[2019-03-23] MEDS ORDERED: AMOX TR/POT CLAV 500MG/125MG TABLETS (FP) PO SCH (08:30)
[2019-03-23] MEDS ORDERED: PT OWN MED DRAWER 7, Y5N ONE (08:30)
--- NOTE | 2019-03-23 08:37 | DS ---
Physical Examination Vital Signs: Vital Signs Temperature 97.4 F L 03/23/19 06:00 Pulse Rate 62 03/23/19 06:00 Respiratory Rate 18 03/23/19 06:00 Blood Pressure 162/79 03/23/19 06:00 O2 Sat by Pulse Oximetry (%) 97 03/22/19 20:29 Labs: CBC, BMP 03/21/19 05:31 03/21/19 05:31 Discharge Summary Problems reviewed: Yes Reason For Visit: PNEUMONIA Current Active Problems Acute respiratory failure with hypoxia (Acute) Atelectasis of both lungs (Acute) Bilateral pleural effusion (Acute) Hypoxia (Acute) Obesity (Acute) Oral candidiasis (Acute) Pleural effusion, right (Acute) Pneumonia (Acute) Acute toxic metabolic encephalopathy Acute hypokalemia Acute hyperbilirubinemia Acute transaminasemia Condition: Improved - Instructions Disposition: HOME - Home Medications Comprehensive Discharge Medication List: Ambulatory Orders Alprazolam [Xanax] 0.25 mg PO BID 03/12/19 Apixaban [Eliquis] 2.5 mg PO BID 03/12/19 Atorvastatin Ca [Lipitor] 10 mg PO HS 03/12/19 Furosemide [Lasix] 80 mg PO BID 03/12/19 Hydralazine HCl 50 mg PO BID 03/12/19 Insulin (Novolog 70/30) [Novolog Mix 70/30 Vial -] 20 units SQ DAILY 03/12/19 Levothyroxine [Synthroid -] 25 mcg PO DAILY 03/12/19 Lisinopril [Zestril] 40 mg PO DAILY 03/12/19 Metoprolol Succinate 12.5 mg PO DAILY 03/12/19 Amiodarone HCl [Cordarone -] 200 mg PO DAILY tablet 03/21/19 Amox-Tr/K Cl [Augmentin 500-125mg Tablet -] 1 tab PO BID@0800,1730 tablet 03/21 Bacitracin/Polymyxin Ointment [Polysporin Ointment -] 1 applic TP BID tube 07/08 for 7 days Nystatin Oral Suspension - [Nystatin Oral Susp 658941 Units/5 ML -] 500,000 units PO QID cup 03/21/19 for 7 days. Oxygen 3L/min via nasal cannula Follow up in one week. Total time spent over 30 minutes.
[2019-03-23] MEDS: LISINOPRIL 20 MG TABLET (FP) PO SCH (08:43)
[2019-03-23] MEDS: metoPROLOL SUCCINATE 25 MG TAB.SR.24H (FP) PO SCH (09:40)
[2019-03-23] MEDS: hydrALAZINE HCL 50 MG TABLET (FP) PO SCH (09:40)
[2019-03-23] MEDS: AMIODARONE HCL 200 MG TABLET (FP) PO SCH (09:40)
[2019-03-23] MEDS: POTASSIUM CHLORIDE TABS 20 MEQ TABLET.ER (FP) PO SCH (09:40)
[2019-03-23] MEDS: INSULIN (NOVOLOG MIX 70/30) 100 UNITS/ML MDV SQ SCH (09:41)
[2019-03-23] MEDS: NYSTATIN 500,000 UNITS/5 ML SUSPENSION PO SCH ×2 (09:41→14:08)
[2019-03-23] MEDS: BACITRACIN/POLYMYXIN B SULFATE 15 GM TUBE TP SCH (09:43)
[2019-03-23] MEDS ORDERED: ALPRAZolam 0.25 MG TABLET PO PRN (10:00)
[2019-03-23] MEDS ORDERED: PNEUMOCOCCAL 23 VACCINE 0.5 ML VIAL IM ONE (10:40)
[2019-03-23 14:49] VITALS: BP 135/57; PULSE 61; TEMP 98.2
--- NOTE | 2019-03-23 16:15 | PATH ---
Cytology Non-Gynecological Report Patient Name: FERNANDA JENKINS [facility]. Rec. #: [id number] /Age/Gender: 1935 (Age: 83) / F Account: [id number] Location: [address] [place] [address]/[place] Taken: 03/19/2019 Received: 03/19/2019 Reported: 03/23/2019 Physicians: MD Costa Mcmullen M.D. Specimen(s) Received A: PLEURAL FLUID B: PLEURAL FLUID Clinical History Right pleural effusion Final Diagnosis A-B. PLEURAL EFFUSION, RIGHT, THORACENTESIS: SATISFACTORY FOR EVALUATION. NO MALIGNANT CELLS IDENTIFIED. MESOTHELIAL CELLS WITH REACTIVE AND DEGENERATIVE CHANGES PRESENT. Comment: Recommend correlation with clinical findings and follow up as clinically indicated. Electronically Signed Ashley Tyson M.D. Gross Description A. Approximately 35 cc of pelon fluid received fixed in 50% alcohol. One cytofunnel prepared and Pap stained. One cellblock prepared. B. Approximately 180 cc of pelon fluid received fresh. One cytofunnel prepared and Pap stained. One cellblock prepared.
== END 2019-03-23 15:41 | disposition home or self-care (01) | DRG 193 ==
LOC: JER 18:24 → JERBED 20:52 → J4S 22:14
PROVIDERS: ADMIT Internal Medicine; ATTEND Internal Medicine
PROC: 0W993ZX Drainage of Right Pleural Cavity, Percutaneous Approach, Diagnostic (ICD-10-PCS; principal; 2019-03-19)
DX: J18.9 Pneumonia, unspecified organism (principal); G93.41 Metabolic encephalopathy; J96.01 Acute respiratory failure with hypoxia; I31.3 Pericardial effusion (noninflammatory); F03.91 Unspecified dementia, unspecified severity, with behavioral disturbance; J98.11 Atelectasis; B37.0 Candidal stomatitis; E87.1 Hypo-osmolality and hyponatremia; R44.0 Auditory hallucinations; J90 Pleural effusion, not elsewhere classified; R41.82 Altered mental status, unspecified; I10 Essential (primary) hypertension; E78.5 Hyperlipidemia, unspecified; J44.9 Chronic obstructive pulmonary disease, unspecified; I11.0 Hypertensive heart disease with heart failure; I48.91 Unspecified atrial fibrillation; E11.9 Type 2 diabetes mellitus without complications; E03.9 Hypothyroidism, unspecified; K21.9 Gastro-esophageal reflux disease without esophagitis; F41.9 Anxiety disorder, unspecified; R94.5 Abnormal results of liver function studies; R26.81 Unsteadiness on feet; E80.6 Other disorders of bilirubin metabolism; E87.6 Hypokalemia; R44.1 Visual hallucinations; H11.32 Conjunctival hemorrhage, left eye; D72.829 Elevated white blood cell count, unspecified; E66.9 Obesity, unspecified; Z68.32 Body mass index [BMI] 32.0-32.9, adult; Z86.73 Personal history of transient ischemic attack (TIA), and cerebral infarction without residual deficits
CPT/HCPCS: 36415; 71045-TC-FY; 71250-TC; 76942; 80053; 81003; 82042; 82150; 82465; 82550; 82728; 82803; 82945; 82962; 83605; 83615; 83735; 83880; 84478; 84484; 85025; 85610; 85730; 87040; 87070; 87075; 87086; 87102; 87116; 87205; 87206; 87210; 87899; 88108; 88305-TC; 93005; 93010; 93970-TC; 94761; 97116-GP; 97161-GP; 99284-25; G0008; Q2036